=== PATIENT | female | born 1985 | race African-American/Black ===

== ENCOUNTER 2020-09-25 08:35 | Outpatient (REF) | payer MEDICAID, SELFPAY ==
--- NOTE | 2020-09-25 | US_ITS ---
EXAMINATION: US ABDOMEN COMPLETE CLINICAL INFORMATION: Right upper quadrant pain. COMPARISON: Previous CT of the abdomen and pelvis July 2019 TECHNIQUE: Real-time imaging of the abdominal viscera. FINDINGS: PANCREAS: Not well visualized due to bowel gas ABDOMINAL AORTA: The proximal and mid abdominal aorta is normal in caliber. The distal abdominal aorta is not well visualized due to bowel gas. INFERIOR VENA CAVA: Visualized portions are normal. LIVER: Liver echotexture is increased. The liver is enlarged, right lobe measuring 21 cm in length. The liver is normal in shape and contour.. No focal hepatic lesion. There is no intrahepatic biliary duct dilatation seen. GALLBLADDER: Normal. The gallbladder is physiologically distended without evidence of stones, sludge, polyps, wall thickening or pericholecystic fluid. COMMON BILE DUCT: Normal in caliber measuring 0.4 cm in diameter. RIGHT KIDNEY: Normal. No hydronephrosis. No renal calculi or focal parenchymal lesions. The kidney measures 10.5 cm in maximum dimension. LEFT KIDNEY: Normal. No hydronephrosis. No renal calculi or focal parenchymal lesions. The kidney measures 11 cm in maximum dimension. SPLEEN: Normal. The spleen measures 10 cm in maximum dimension. FREE FLUID: None. US/US abdomen complete IMPRESSION: Enlarged echogenic liver probably representing fatty infiltration. Normal-appearing gallbladder. Limited visualization of the pancreas and aorta.
== END 2020-09-25 08:36 | disposition home or self-care (01) ==
LOC: HO.US 08:35
PROVIDERS: Visit Provider Internal Medicine Geriatric Medicine
DX: R10.11 Right upper quadrant pain (principal)
CPT/HCPCS: 76700

== ENCOUNTER 2020-11-14 10:50 | Outpatient (REF) | payer MEDICAID, SELFPAY ==
[2020-11-21 20:12] LABS: HPV 16 RNA NOT DETECTED (NOT DETECTED); HPV mRNA E6/E7 rflx Detected (Not Detected)
== END 2020-11-14 10:51 | disposition home or self-care (01) ==
LOC: HO.LAB 10:50
PROVIDERS: Visit Provider Obstetrics & Gynecology
DX: D06.9 Carcinoma in situ of cervix, unspecified (principal); Z79.899 Other long term (current) drug therapy; Z30.9 Encounter for contraceptive management, unspecified
CPT/HCPCS: 87624; 87625; 88141; 88142; 88305; 99212

== ENCOUNTER 2020-11-20 16:06 | Emergency (ER) | payer MEDICAID, SELFPAY | END 2020-11-20 17:51 | disposition left against medical advice (07) | PROVIDERS: Emergency Provider Emergency Medicine | DX: R10.11 Right upper quadrant pain (principal) ==

== ENCOUNTER 2020-12-02 10:55 | Outpatient (REF) | payer MEDICAID, SELFPAY | END 2020-12-02 10:56 | disposition home or self-care (01) | LOC: HO.LAB 10:55 | PROVIDERS: Visit Provider Obstetrics & Gynecology | DX: R87.610 Atypical squamous cells of undetermined significance on cytologic smear of cervix (ASC-US) (principal); R87.810 Cervical high risk human papillomavirus (HPV) DNA test positive; R07.9 Chest pain, unspecified; Z79.899 Other long term (current) drug therapy | CPT/HCPCS: 57455; 81025; 88305; 99212 ==

== ENCOUNTER → 2020-12-12 11:32 | Outpatient (BNVA) | payer MEDICAID, SELFPAY | PROVIDERS: PCP Internal Medicine; Visit Provider Obstetrics & Gynecology ==

== ENCOUNTER 2021-02-18 09:42 | Outpatient (REF) | payer MEDICAID, SELFPAY ==
[2021-02-18 14:20] LABS: CT PCR NOT DETECTED (Not Detect.); NG PCR NOT DETECTED (Not Detect.)
[2021-02-19 09:38] LABS: BV Int Neg Control Negative (Negative); BV Int Pos Control Positive (Positive)
== END 2021-02-18 09:43 | disposition home or self-care (01) ==
LOC: HO.LAB 09:42
PROVIDERS: Visit Provider Obstetrics & Gynecology
DX: R10.2 Pelvic and perineal pain (principal)
CPT/HCPCS: 87480; 87491; 87510; 87591; 87660; 99212

== ENCOUNTER 2021-02-25 11:25 | Outpatient (REF) | payer MEDICAID, SELFPAY ==
--- NOTE | ~2021-02-25 | US_ITS ---
EXAM: Pelvic Ultrasound CLINICAL INDICATION: Pelvic and perineal pain COMPARISON: Pelvic ultrasound June 20, 2020 TECHNIQUE: The pelvis was evaluated using transabdominal and transvaginal imaging. FINDINGS: The uterus measures 10.2 x 4.5 x 6.4 cm in longitudinal by AP by transverse dimension. The endometrial stripe is not thickened and measures 0.6 cm. Several nabothian cysts are present within the cervix. Mild thickening of the cervical endometrium. The left ovary measures approximately 2.6 x 2.7 x 1.7 cm and is normal. The right ovary measures approximately 2.6 x 2.7 x 2.3 cm and is also normal. There are no abnormal adnexal masses. There is no free fluid in the pelvis. US/US pelvic complete IMPRESSION: -Normal thickness uterine endometrium. -There is mild thickening of the cervical endometrium in addition to several nabothian cysts. Clinical correlation recommended. Direct inspection may be warranted.
--- NOTE | ~2021-02-25 | US_ITS ---
EXAM: Pelvic Ultrasound CLINICAL INDICATION: Pelvic and perineal pain COMPARISON: Pelvic ultrasound June 20, 2020 TECHNIQUE: The pelvis was evaluated using transabdominal and transvaginal imaging. FINDINGS: The uterus measures 10.2 x 4.5 x 6.4 cm in longitudinal by AP by transverse dimension. The endometrial stripe is not thickened and measures 0.6 cm. Several nabothian cysts are present within the cervix. Mild thickening of the cervical endometrium. The left ovary measures approximately 2.6 x 2.7 x 1.7 cm and is normal. The right ovary measures approximately 2.6 x 2.7 x 2.3 cm and is also normal. There are no abnormal adnexal masses. There is no free fluid in the pelvis. US/US transvaginal IMPRESSION: -Normal thickness uterine endometrium. -There is mild thickening of the cervical endometrium in addition to several nabothian cysts. Clinical correlation recommended. Direct inspection may be warranted.
== END 2021-02-25 11:26 | disposition home or self-care (01) ==
LOC: HO.US 11:25
PROVIDERS: Visit Provider Obstetrics & Gynecology
DX: R10.2 Pelvic and perineal pain (principal)
CPT/HCPCS: 76830; 76856

== ENCOUNTER → 2021-03-11 10:54 | Outpatient (BNVA) | payer MEDICAID, SELFPAY | PROVIDERS: Visit Provider Obstetrics & Gynecology | CPT/HCPCS: 99212 ==

== ENCOUNTER → 2021-04-10 11:27 | Outpatient (BNVA) | payer MEDICAID, SELFPAY | PROVIDERS: Visit Provider Advanced Practice Midwife ==

== ENCOUNTER 2021-04-16 11:37 | Outpatient (REF) | payer MEDICAID, SELFPAY ==
[2021-04-17 08:58] LABS: BV Int Neg Control Negative (Negative); BV Int Pos Control Positive (Positive)
[2021-04-17 09:00] LABS: CT PCR NOT DETECTED (Not Detect.); NG PCR NOT DETECTED (Not Detect.)
== END 2021-04-16 11:38 | disposition home or self-care (01) ==
LOC: HO.LAB 11:37
PROVIDERS: Visit Provider Obstetrics & Gynecology
DX: Z11.3 Encounter for screening for infections with a predominantly sexual mode of transmission (principal); R31.29 Other microscopic hematuria; B37.3 Candidiasis of vulva and vagina; N91.2 Amenorrhea, unspecified
CPT/HCPCS: 87480; 87491; 87510; 87591; 87660; 99212

== ENCOUNTER 2021-04-30 10:28 | Outpatient (REF) | payer MEDICAID, SELFPAY | END 2021-04-30 10:29 | disposition home or self-care (01) | LOC: HO.LAB 10:28 | PROVIDERS: Visit Provider Obstetrics & Gynecology | DX: R31.29 Other microscopic hematuria (principal); N91.2 Amenorrhea, unspecified | CPT/HCPCS: 87086; 99212 ==

== ENCOUNTER 2021-05-09 14:06 | Outpatient (REF) | payer MEDICAID, SELFPAY ==
--- NOTE | ~2021-05-09 | CT_ITS ---
EXAMINATION: CT ABDOMEN AND PELVIS WITHOUT CONTRAST CLINICAL INFORMATION: Flank pain and left upper quadrant pain. Dysuria. Question renal stones. COMPARISON: Previous pelvic ultrasound February 2021, abdomen ultrasound September [address] of the abdomen and pelvis July 2019 TECHNIQUE: Multidetector volumetric images were obtained from the superior aspect of the liver through the pubic symphysis without intravenous contrast. Sagittal and coronal reformatted images were obtained on the technologist's workstation. Oral contrast: No This CT examination was performed using dose optimization techniques as appropriate, variously including the following: *Automated exposure control *Adjustment of mA and/or kV according to patient size (this includes techniques or standardized protocols for targeted exams where dose is matched to indication/reason for exam; i.e. extremities or head) *Use of iterative reconstruction technique DLP: 962 mGy-cm FINDINGS: LUNG BASES: There is a 2 mm calcified left lower lobe nodule axial image 17 series 3. This is stable. The lung bases are otherwise clear. LIVER, GALLBLADDER, AND BILIARY TREE: The liver is enlarged and low in attenuation suggestive of fatty infiltration. No focal liver lesion is seen. There is a gallstone in the gallbladder. The gallbladder is otherwise normal. There is no intra or extrahepatic biliary duct dilatation. PANCREAS: Unremarkable. SPLEEN: Unremarkable. ADRENAL GLANDS: Unremarkable. KIDNEYS AND URETERS: The kidneys are normal in size, shape, and attenuation. No hydronephrosis, hydroureter, or calculi seen. No perinephric stranding. BLADDER: Not optimally distended. GASTROINTESTINAL TRACT: The small and large bowel are unremarkable. The appendix is unremarkable. ABDOMINAL WALL: No significant hernia is appreciated. LYMPH NODES: Normal. VASCULAR: Unremarkable. PELVIC VISCERA: Unremarkable. OSSEOUS STRUCTURES: Unremarkable. CT/CT abdomen pelvis w con IMPRESSION: Enlarged fatty liver. Small gallstone. No renal stone seen.
== END 2021-05-09 14:07 | disposition home or self-care (01) ==
LOC: HO.CT 14:06
PROVIDERS: PCP Internal Medicine; Visit Provider Emergency Medicine
DX: R10.9 Unspecified abdominal pain (principal)
CPT/HCPCS: 74177

== ENCOUNTER → 2021-06-04 14:56 | Outpatient (BNVA) | payer MEDICAID, SELFPAY | PROVIDERS: Visit Provider Obstetrics & Gynecology | DX: R31.29 Other microscopic hematuria (principal) | CPT/HCPCS: 81003; 99212 ==

== ENCOUNTER 2022-02-04 10:06 | Outpatient (REF) | payer OTHER, SELFPAY ==
[2022-02-04 12:46] LABS: HCG Quantitative < 2 mIU/mL; TSH reflex Free T4 1.38 uIU/mL (0.32-4.0)
[2022-02-07 09:26] LABS: HPV mRNA E6/E7 rflx Not Detected (Not Detected)
== END 2022-02-04 10:07 | disposition home or self-care (01) ==
LOC: HO.LAB 10:06
PROVIDERS: PCP Internal Medicine; Visit Provider Obstetrics & Gynecology
DX: Z01.411 Encounter for gynecological examination (general) (routine) with abnormal findings (principal); Z11.51 Encounter for screening for human papillomavirus (HPV); N91.2 Amenorrhea, unspecified
CPT/HCPCS: 36415; 84443; 84702; 87624; 88142

== ENCOUNTER → 2022-02-18 11:17 | Outpatient (BNVA) | payer MEDICAID, SELFPAY | PROVIDERS: PCP Internal Medicine; Visit Provider Obstetrics & Gynecology | DX: N91.2 Amenorrhea, unspecified (principal) | CPT/HCPCS: 81025; 99212 ==

== ENCOUNTER 2024-06-04 00:08 | Emergency (ER) | payer MEDICAID, SELFPAY ==
[2024-06-04 00:17] VITALS: BP 112/83; PULSE 74; RESP 16; TEMP 37.1; O2SAT 97; BMI 48.8
[2024-06-04 01:12] LABS: IDNOW Serial# 58CA691E; Strep A Nucleic Acid Negative (Negative)
[2024-06-04 01:16] LABS: IDNOW Serial# 6674DD1D; Influenza A Negative (Negative); Influenza B2 Negative (Negative)
[2024-06-04 01:26] VITALS: BP 122/57; PULSE 73; RESP 16; TEMP 37.1; O2SAT 98
[2024-06-04 01:27] LABS: COVID-19 Test Negative (Negative); IDNOW Serial# 152EDE1D
[2024-06-04] MEDS: predniSONE 10 MG TABLET 50 MG PO (02:04)
[2024-06-04] MEDS: Ibuprofen 600 MG TABLET PO (02:04)
[2024-06-04] MEDS: Amoxicillin/Potassium Clav 500 MG TABLET PO (02:04)
--- NOTE | 2024-06-04 02:20 | ED_ITS ---
HPI - URI/Sore Throat General Chief Complaint: Upper Respiratory Symptoms Stated Complaint: diff breathing, flu like? Time Seen by Provider: 06/04/24 01:36 Source: patient Mode of arrival: ambulatory Limitations: no limitations History of Present Illness ED Provider: Dr. Michelle Herron HPI Narrative: Patient comes to the emergency room complaining of more frequent asthma exacerbations, cough, sore throat. Patient is here with her children, 1 of them tested positive for strep. Patient states she has been having symptoms for about 3 days. Patient complaining of subjective fever and chills, generalized malaise. No nausea vomiting or diarrhea. No shortness of breath Related Data Previous Rx's ?Medication ?Instructions ?Recorded progesterone micronized 200 mg 200 mg PO BEDTIME 5 days #5 caps 02/18/22 capsule (Prometrium) amoxicillin 500 mg-potassium 1 tab PO TID #30 tabs 06/04/24 clavulanate 125 mg tablet (Augmentin) prednisone 50 mg tablet 50 mg PO DAILY #4 tabs 06/04/24 Allergies Allergy/AdvReac Type Severity Reaction Status Date / Time No Known Allergies [NKA] Allergy Mild NOT Verified 06/04/24 00:18 APPLICABLE Review of Systems Review of Systems: Constitutional : No Weight loss, No Fever, No Chills, No Night Sweats, No Fatigue, No Malaise ENT/Mouth : No Hearing loss, No Ear Pain, No Nasal Congestion, No Sinus Pain, No Hoarseness, complaining of sore throat, No Rhinorrhea, No Swallowing Difficulty Eyes: No Eye Pain, No Swelling, No Redness, No Foreign Body, No Discharge, No Vision Changes Cardiovascular : No Chest Pain, No SOB, No Dyspnea on Exertion, No Orthopnea, No Edema, No Palpitations Respiratory : Complaining of dry, No Sputum, complaining of more frequent asthma exacerbations than usual for the last 3 days, No Smoke Exposure, No Dyspnea Gastrointestinal : No Nausea, No Vomiting, No Diarrhea, No Constipation, No abdominal Pain, No Hematochezia, No Melena Genitourinary : no irregular bleeding, No Dysuria, No Urinary Frequency, No Hematuria, No Urinary Incontinence, No Urgency, No Flank Pain, No Urinary Flow Changes, No Hesitancy Musculoskeletal : No joint pain, No Myalgias, No Joint Swelling Skin : No Skin Lesions, No rash Neuro : No Weakness, No Numbness, No Paresthesias, No Loss of Consciousness, No Dizziness, No Headache Psych : No Anxiety/Panic, No Depression, No SI/HI/AH/VH, No Social Issues, Heme/Lymph: No Bruising, No Bleeding,No Lymphadenopathy Endocrine : No Polyuria, No Polydipsia, No Temperature Intolerance [facility] Past Medical History Medical History Hx LEEP (loop electrosurgical excision procedure), cervix, Anxiety Depression Asthma Social History Social History (System 12/15/22 @ 14:55 by Ghislaine Ray) Alcohol intake: never Advance Directives: No Advance Directives Information Provided: No Do you have a plan to hurt others: No Plan Sexual orientation: Straight/Heterosexual Gender identity: Female Physical Exam Vital Signs: Vital Signs: Last Vital Signs Temp 98.7 F 06/04/24 01:26 Pulse 73 06/04/24 01:26 Resp 16 06/04/24 01:26 BP 122/57 L 06/04/24 01:26 Pulse Ox 98 06/04/24 01:26 O2 Del Method Room Air 06/04/24 01:26 BMI result Body Mass Index 48.8 Const: Other: Appearance: Alert. Oriented X3. No acute distress. Eyes: Pupils equal, round and reactive to light. ENT: Cerebral pharynx, no exudates, no abscesses Neck: Normal inspection. Neck supple. No lymph nodes noted. No crepitus CVS: Normal heart rate and rhythm. Pulses normal. Normal S1 and S2 Respiratory: No respiratory distress. Breath sounds normal. No Wheezing. No rales Abdomen: Soft and nontender. No rigidity. No distention. Skin: Skin warm and dry. Normal skin color. Normal skin turgor. Extremities: No lower extremity edema. No Lacerations. No Rash Neuro: Oriented X 3. No motor deficit. No sensory deficit. Moving all extremities. No slurred speech. CN 2 through 12 grossly intact Psych: calm, cooperative, normal affect Medications Administered Discontinued Medications Generic Name Dose Route Start Last Admin Trade Name Freq PRN Reason Stop Dose Admin Amoxicillin/Clavulanate Potassium 500 mg 06/04/24 01:55 06/04/24 02:04 Amoxicillin/Potassium Clav 500 Mg Tablet PO 06/04/24 01:56 500 mg ONCE ONE Administration Ibuprofen 600 mg 06/04/24 01:56 06/04/24 02:04 Ibuprofen 600 Mg Tablet PO 06/04/24 01:57 600 mg ONCE ONE Administration Prednisone 50 mg 06/04/24 01:55 06/04/24 02:04 Prednisone 10 Mg Tablet PO 06/04/24 01:56 50 mg ONCE ONE Administration Medical Decision Making Medical Decision Making [facility] Narrative: -my interpretation of labs: Patient tested negative for influenza COVID and s trep. However, patient's oropharynx is significantly erythematous and also her son tested positive for strep, we will go ahead and treat the patient for strep as well. -patient complaining of more frequent asthma exacerbations. At this time, patient does not have any wheezing. However, we will give her a dose of prednisone and a small prescription for the next few months. Differential Diagnosis Differential Diagnoses: The differential diagnosis associated with the presentation includes (Asthma exacerbation, viral illness, strep, COVID, influenza) Lab Data [facility] Lab Attestation statement: I reviewed the patient's lab results. Labs: Lab Results 06/04/24 Range/Units 00:43 COVID-19 (JEANNINE) Negative (Negative) COVID-19 Clin Com See Note Influenza Type A (JOVANNY) Negative (Negative) Influenza Type B (JOVANNY) Negative (Negative) Influenza A & B Note See Note S. pyogenes GrpA JOVANNY Negative (Negative) Discharge Plan Discharge Clinical Impression: Viral URI, Pharyngitis Patient Disposition: Home, Self-Care Instructions: Pharyngitis (ED), Influenza (ED) Additional Instructions: Please follow-up with your primary care physician tomorrow. If you have any worsening or new symptoms, please return to the emergency room or call 911 Prescriptions: New amoxicillin-pot clavulanate [Augmentin] 500-125 mg tablet 1 tab PO TID Qty: 30 0RF prednisone 50 mg tablet 50 mg PO DAILY Qty: 4 0RF No Action progesterone micronized [Prometrium] 200 mg capsule 200 mg PO BEDTIME 5 Days Qty: 5 0RF Print Language: Portuguese
[2024-06-04 02:34] VITALS: BP 122/57; PULSE 73; RESP 16; TEMP 37.1; O2SAT 98
== END 2024-06-04 02:37 | disposition home or self-care (01) ==
PROVIDERS: Emergency Provider Emergency Medicine
DX: J02.9 Acute pharyngitis, unspecified (principal); J06.9 Acute upper respiratory infection, unspecified; R06.02 Shortness of breath; R05.9 Cough, unspecified; Z11.52 Encounter for screening for COVID-19; Z79.899 Other long term (current) drug therapy
CPT/HCPCS: 87502; 87635; 87651; 99283

== ENCOUNTER 2024-06-06 22:54 | Emergency (ER) | payer MEDICAID, SELFPAY ==
[2024-06-06 22:56] VITALS: BP 134/76; PULSE 71; RESP 18; TEMP 36.8; O2SAT 97; BMI 48.0
== END 2024-06-07 02:13 | disposition left against medical advice (07) ==
PROVIDERS: Emergency Provider Emergency Medicine
DX: R05.9 Cough, unspecified (principal); R06.02 Shortness of breath; Z53.21 Procedure and treatment not carried out due to patient leaving prior to being seen by health care provider
CPT/HCPCS: 99281

== ENCOUNTER 2024-08-01 10:39 | Outpatient (REF) | payer MEDICAID, SELFPAY ==
[2024-08-01 13:31] LABS: Hematocrit 44.4 % (37.0-47.0); Hemoglobin 13.9 g/dl (12.0-16.0); Mean Corpuscular HGB Conc 31.3 g/dl (31.0-35.0); Mean Corpuscular Hemoglobin 26.1 pg (27.0-33.0); Mean Corpuscular Volume 83.5 fL (80.0-98.0); Mean Platelet Volume 11.6 fL (9.4-12.3); Platelet Count 383 X10*3/uL (160-400); Red Blood Count 5.32 X10*6/uL (4.20-5.50); White Blood Count 13.6 X10*3/uL (4.8-10.8)
[2024-08-01 14:46] LABS: HCG Quantitative < 2 mIU/mL; TSH reflex Free T4 1.07 uIU/mL (0.32-4.0)
[2024-08-02 08:47] LABS: Prolactin 5.5 ng/mL
== END 2024-08-01 10:40 | disposition home or self-care (01) ==
LOC: HO.LAB 10:39
PROVIDERS: PCP Physician Assistant; Visit Provider Obstetrics & Gynecology
DX: Z01.419 Encounter for gynecological examination (general) (routine) without abnormal findings (principal); N93.9 Abnormal uterine and vaginal bleeding, unspecified
CPT/HCPCS: 36415; 84146; 84443; 84702; 85027; 99395

== ENCOUNTER 2024-08-01 10:39 | Outpatient (AMB) | payer MEDICAID, SELFPAY ==
[2024-08-01 11:43] VITALS: BP 128/80; BMI 44.9
--- NOTE | 2024-08-01 11:43 | MHC.OFFVIS ---
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 Complaining of irregular menstrual cycles associated with passage of blood clots and pelvic cramping Last Pap/HPV was negative in 02/10 [facility] Medical History Hx LEEP (loop electrosurgical excision procedure), cervix, Anxiety Depression Asthma Social History Alcohol intake: never Sexual orientation: Straight/Heterosexual Gender identity: Female Female Reproductive History Menstrual Age of Menarche: 11 Duration of menses: 6-7 days Date of last menstrual period: 06/14/24 control method: none Total pregnancies: 10 Full term: 7 Number of Living Children: 7 Ab spontaneous: 3 Review of Systems Const All systems reviewed & are unremarkable except as noted in HPI and below Card Reports as per HPI Resp Reports as per HPI GI Reports as per HPI and Reports no additional complaints Reports as per HPI Physical Exam Vital Signs: Last Vital Signs BP 128/80 08/01/24 11:43 BMI result Body Mass Index 44.9 Const General: cooperative, healthy appearing and comfortable Chest Chest palpation & inspection: normal inspection of the chest and normal palpation of entire chest wall Breast/axilla inspection: normal inspection of the breasts and normal inspection of the axillae Breast/axilla palpation: normal palpation of the breasts, normal palpation of the axillae and no axillary lymphadenopathy Resp Effort & Inspection: normal respiratory effort Auscultation: clear to auscultation bilaterally Percussion: percussion normal Cardio Palpation: normal PMI Rate: regular rate Rhythm: regular rhythm Heart sounds: no murmurs and no rubs Peripheral pulses: Peripheral pulses 2+ throughout GI Inspection: Yes normal to inspection Palpation (GI): Soft to palpation, nontender, no guarding, not rigid and No hepatosplenomegaly present Percussion: Yes normal to percussion Auscultation: normal bowel sounds Rectal Exam - Female: deferred General: Yes bladder normal to palpation External Female Exam: No lesion Speculum Exam - Vagina: normal appearance of the vagina, normal palpation, normal vaginal discharge and not erythematous Speculum Exam - Cervix: normal appearance of the cervix and normal palpation Bimanual exam- vagina & uterus: normal bimanual exam, normal palpation, uterine size normal, bladder normal to palpation, consistency normal and normal palpation Bimanual Exam- Adnexa, other: normal adnexae, no masses and no tenderness Assessment & Plan Assessment & Plan (1) Well woman exam: Comment: History of LUISITO 2-3 status post LEEP in 07/11 was positive margins followed by [facility] HPV negative, colpo , biopsy, ECC negative in 11/10 Co testing negative in 02/10 Code(s): Z01.419 - Encounter for gynecological examination (general) (routine) without abnormal findings Category: Medical Plan: Cotesting done. Counseled the patient about the recommended dietary allowance of 1000 mg of Calcium & 600 IU of vitamin D. The patient was instructed to perform monthly self-breast exams and to schedule an annual exam in a year; All questions answered and the patient verbalized understanding. Instructed the patient to schedule annual exam in a year (2) Abnormal uterine bleeding (AUB): Code(s): N93.9 - Abnormal uterine and vaginal bleeding, unspecified Category: Medical Plan: Co testing done, GC and chlamydia taken CBC, TSH, prolactin, HCG, and pelvic ultrasound ordered. Discussed with the patient the different causes of abnormal bleeding including thyroid disorders, uterine and ovarian pathology, endometrial hyperplasia, carcinoma and other potential causes. Discussed with the patient the work up including CBC (to r/o anemia), TSH, prolactin, pelvic Ultrasound, endometrial biopsy to r/o endometrial pathology. All questions answered and the patient verbalized understanding. Instructed the patient to schedule an appointment for an endometrial biopsy in 2 weeks. Orders: Orders TSH reflex Free T4 Today N93.9 - Abnormal uterine and vaginal bleeding, unspecified Prolactin Today N93.9 - Abnormal uterine and vaginal bleeding, unspecified HCG Quantitative Today N93.9 - Abnormal uterine and vaginal bleeding, unspecified Complete Blood Count no Diff Today N93.9 - Abnormal uterine and vaginal bleeding, unspecified US pelvic and transvaginal Today N93.9 - Abnormal uterine and vaginal bleeding, unspecified Coding Level of Care Code Est Pt Prev Care 18-39y(34043) Diagnoses Well woman exam Z01.419 Abnormal uterine bleeding (AUB) N93.9
== END 2024-08-01 12:03 | disposition home or self-care (01) ==
PROVIDERS: Visit Provider Obstetrics & Gynecology
DX: Z01.419 Encounter for gynecological examination (general) (routine) without abnormal findings (principal); N93.9 Abnormal uterine and vaginal bleeding, unspecified
CPT/HCPCS: 99395

== ENCOUNTER 2024-08-01 12:00 | Outpatient (REF) | payer MEDICAID, SELFPAY ==
[2024-08-01 16:51] LABS: CT PCR NOT DETECTED (Not Detect.); NG PCR NOT DETECTED (Not Detect.)
[2024-08-03 10:54] LABS: HPV mRNA E6/E7 Not Detected (Not Detected)
== END 2024-08-01 12:01 | disposition home or self-care (01) ==
LOC: HO.LNP 12:00
PROVIDERS: Visit Provider Obstetrics & Gynecology
DX: N93.9 Abnormal uterine and vaginal bleeding, unspecified (principal); Z01.419 Encounter for gynecological examination (general) (routine) without abnormal findings
CPT/HCPCS: 87491; 87591; 87624; 88175

== ENCOUNTER 2024-08-04 10:51 | Outpatient (REF) | payer MEDICAID, SELFPAY ==
--- NOTE | ~2024-08-04 | US_ITS ---
EXAMINATION: US PELVIS, TRANSABDOMINAL AND TRANSVAGINAL CLINICAL INFORMATION: Abnormal vaginal bleeding. COMPARISON: None available. TECHNIQUE: Ultrasound of the pelvis is performed using both transabdominal and transvaginal transducers along with Doppler. Transvaginal imaging is performed due to inadequate visualization transabdominally. FINDINGS: UTERUS: The uterus is anteverted and measures 9.5 x 5.2 x 5.7 cm. The double wall endometrial thickness is 13 mm. The uterus is smooth in contour and has normal myometrial echogenicity. No visible fibroid. Nabothian cysts are present in the cervix. ADNEXA: Both ovaries are visualized. There is normal color flow to the adnexa. There is no ovarian torsion. There is no pelvic ascites or fluid collection. Right ovary measures 0.3 x 2.3 x 2.1 cm for a volume of 84 mL and appears normal. Left ovary measures 2.3 x 1.6 x 1.4 cm for a volume of 2.7 mL and appears normal. US/US pelvic and transvaginal IMPRESSION: Negative exam. Electronically signed by: Flex Hunter MD 08/09/2024 03:51 PM EDT
== END 2024-08-04 10:52 | disposition home or self-care (01) ==
LOC: HO.US 10:51
PROVIDERS: PCP Physician Assistant; Visit Provider Obstetrics & Gynecology
DX: N93.9 Abnormal uterine and vaginal bleeding, unspecified (principal)
CPT/HCPCS: 76830; 76856

== ENCOUNTER 2024-10-04 11:22 | Outpatient (AMB) | payer MEDICAID, SELFPAY ==
--- NOTE | 2024-10-04 11:24 | A.OFFVIS_ITS ---
Vital Signs 10/04/24 11:35 Height 5 ft Weight 229 lb 4.492 oz BMI 44.8 BP 126/70 Intake Visit Reasons: US follow up/EMB Intake Note: Heavy menstrual cycles, not consistent. Left sided ovarian pain, says feels like someone is stabbing her. 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 ) Last menstrual period: 09/28/24 HPI Comments Details: Presenting for EMB [facility] Medical History Hx LEEP (loop electrosurgical excision procedure), cervix, Anxiety Depression Asthma Social History Alcohol intake: never Sexual orientation: Straight/Heterosexual Gender identity: Female Female Reproductive History Menstrual Age of Menarche: 11 Duration of menses: >10 days Date of last menstrual period: 09/28/24 Review of Systems Const All systems reviewed & are unremarkable except as noted in HPI and below Reports as per HPI and Reports no additional complaints GI Reports no additional complaints Reports no additional complaints Physical Exam Vital Signs: Last Vital Signs BP 126/70 10/04/24 11:35 BMI result Body Mass Index 44.8 Office Procedures Endometrial Biopsy Details: The patient was counseled regarding the indication and benefits of endometrial sampling to rule out endometrial pathology including not limited to endometrial hyperplasia or endometrial cancer and others; The alternatives (Either do nothing vs. hysteroscopy D&C) & the risks were discussed with the patient including but not limited: pain, uterine perforation, bleeding, infection, possible injury to bladder, bowel, ureter, possible need for blood transfusion with all its possible risks. The patient verbalized understanding all questions answered and signed consent. Urine test done in the office was negative The patient was placed into the dorsal lithotomy position; a speculum was inserted in the vagina. Using aseptic technique for the procedure, the cervix was cleansed with Betadine. The anterior lip of the cervix was grasped with a single tooth tenaculum. The uterus was sounded to 7 cm with a 4 mm Pipelle was used. Tissues samples were obtained and placed in formalin, in a patient labeled container and sent to the pathology department. At the end of the procedure, there was minimal bleeding noted The patient tolerated the procedure well and was discharged in good condition with the following instructions: Nothing in the vagina until the bleeding stops. No sex until the bleeding stops, to call if any of the following occurs: fever (>100.4), flu-like symptoms, abdominal pain, heavy bleeding, four smelling vaginal discharge. The patient was instructed to schedule a Follow up appointment in 2 weeks to discuss pathology results of the biopsy and treatment options. This note was generated with a voice recognition program. Some errors may have been overlooked during the review of this note. Sometimes these errors may affect the content or meaning of a given sentence. [id number] Biopsy Results AMB Test Urine AMB Test Urine Negative Last Edit by Gayathri Wilkerson CMA on 11:49 Results Reviewed Results Reviewed: Laboratory Last Values [facility]st Clinic Negative 10/04/24 11:48 Assessment & Plan Assessment & Plan (1) Abnormal uterine bleeding (AUB): Code(s): N93.9 - Abnormal uterine and vaginal bleeding, unspecified Category: Medical Plan: Endometrial biopsy done, see procedure Orders: Orders AMB HCG Urine Test Today Z32.02 - Encounter for test, result negative AMB Endometrial Biopsy Today N93.9 - Abnormal uterine and vaginal bleeding, unspecified Coding Level of Care Code Procedure Only Diagnoses Abnormal uterine bleeding (AUB) N93.9 CPT Codes Endometrial Biopsy - CPT: 44373-Hzowsoosvan Biopsy ([id number])
[2024-10-04 11:35] VITALS: BP 126/70; BMI 44.8
== END 2024-10-04 12:03 | disposition home or self-care (01) ==
PROVIDERS: Visit Provider Obstetrics & Gynecology
DX: N93.9 Abnormal uterine and vaginal bleeding, unspecified (principal); Z32.02 Encounter for pregnancy test, result negative
CPT/HCPCS: 58100

== ENCOUNTER 2024-10-04 11:22 | Outpatient (REF) | payer MEDICAID, SELFPAY | END 2024-10-04 11:23 | disposition home or self-care (01) | LOC: HO.LNP 11:22 | PROVIDERS: Visit Provider Obstetrics & Gynecology | DX: N93.9 Abnormal uterine and vaginal bleeding, unspecified (principal) | CPT/HCPCS: 58100; 81025; 88305 ==

== ENCOUNTER 2024-11-01 10:30 | Outpatient (REF) | payer MEDICAID, SELFPAY ==
[2024-11-01 14:02] LABS: HCG Quantitative < 2 mIU/mL
[2024-11-02 03:19] LABS: CT PCR NOT DETECTED (Not Detect.); NG PCR NOT DETECTED (Not Detect.)
[2024-11-02 08:27] LABS: HBsAGNum1 0.44 S/CO (0.00-0.99); HIV AB/AG Nonreactive (Nonreactive); HIV Num 1 0.06 S/CO (0.00-0.99); Hepatitis B Surface Antigen Negative (Negative); ~Hepatitis C Antibody Nonreactive (Nonreactive)
[2024-11-02 08:28] LABS: Syphilis Screen Nonreactive (Nonreactive)
== END 2024-11-01 10:31 | disposition home or self-care (01) ==
LOC: HO.LAB 10:30
PROVIDERS: Visit Provider Advanced Practice Midwife
DX: D06.9 Carcinoma in situ of cervix, unspecified (principal); R87.810 Cervical high risk human papillomavirus (HPV) DNA test positive; R10.2 Pelvic and perineal pain; N73.0 Acute parametritis and pelvic cellulitis; N93.9 Abnormal uterine and vaginal bleeding, unspecified; Z20.2 Contact with and (suspected) exposure to infections with a predominantly sexual mode of transmission
CPT/HCPCS: 84702; 86780; 86803; 87340; 87389; 87491; 87591; 99212; 99459; J0696

== ENCOUNTER 2024-11-01 10:30 | Outpatient (AMB) | payer MEDICAID, SELFPAY ==
[2024-11-01 10:35] VITALS: BP 128/78; BMI 44.7
--- NOTE | 2024-11-01 10:35 | A.OFFVIS_ITS ---
Vital Signs 11/01/24 10:35 Height 5 ft Weight 229 lb BMI 44.7 BP 128/78 Intake Visit Reasons: std test [employer]r Services: [employer] Present Information Interpreted: clinical only Parliamentary Counsel: Parliamentary Counsel Present Allergies No Known Allergies [NKA] Allergy (Mild, Verified 11/01/24 10:36) NOT APPLICABLE Medication List - Last Reconciled 11/01/24 by Maura Valadez CNM empagliflozin (Jardiance) 25 mg PO DAILY insulin glargine (Lantus U-100 Insulin) 22 units subcut DAILY progesterone micronized (Prometrium) 200 mg PO BEDTIME 5 days rosuvastatin 20 mg PO DAILY Is last menstrual period known: Yes Last menstrual period: 10/20/24 HPI HPI std test: Details: Patient is here because she wants to get checked for STDs because her with whom she is sexually active slept with somebody else.. She is very upset and scared and wants to take care of herself additionally she wants a test because she had an inconclusive test at home even though her periods is not late. She recently, last month had an endometrial biopsy with Dr. Mendoza of the hospital but has not seen him for the results yet. She has a history of a LEEP as well also she said that she had endometriosis diagnosed at [facility] in the past though she does not recall having had a laparoscopy. She has been under lots of stress because of the marital challenges. She thinks it is possible she may have missed an appointment. She wants checked fully for STI. [facility] Medical History Hx LEEP (loop electrosurgical excision procedure), cervix, Anxiety Depression Asthma Social History Alcohol intake: never Sexual orientation: Straight/Heterosexual Gender identity: Female Female Reproductive History Menstrual Age of Menarche: 11 Duration of menses: <3 days Date of last menstrual period: 10/20/24 control method: none Total pregnancies: 7 Full term: 7 Date of last pap smear: 02/04/22 (negative) History of abnormal pap smear: Yes (2020 abn.) Physical Exam Vital Signs: Last Vital Signs BP 128/78 11/01/24 10:35 BMI result Body Mass Index 44.7 Other: Normal external exam. Vagina is pink and moist there is a yellowish whitish liquidy bubbly discharge patient was tender with placement of the speculum and also with bimanual exam and there was some cervical motion tenderness. Uterus difficult to palpate but she was tender overall. Results Reviewed Results Reviewed: Name: Abigail Stanley Age/Sex: 39/F Attending: Lizandro Mendoza MD : 1985 Submitted by: Lizandro Mendoza MD Copies to: MR #: [id number] Status: DEP REF Collected: 10/04/24 Location: [facility] Received: 10/05/24 Diagnosis Endometrium, biopsy: Fragments of inactive endometrium with stromal and glandular breakdown; negative for atypia, hyperplasia or malignancy. Clinical History AUB Microscopic Description Microscopic sections reviewed. Material Received EMB Gross Description Received in formalin labeled ?EMB? is a 3.0 x 2.2 x 0.5 cm aggregate of multiple fragments of congested and hemorrhagic red-maroon tissue and blood, submitted in toto in cassettes A1 and A2. CEDS NOTE: Unless otherwise stated, all tissue is formalin-fixed and paraffin- embedded. Some or all of the immunohistochemical tests reported herein may have been developed and their performance characteristics determined by [facility]. They have not been cleared or approved by the U.S. Food and Drug Administration (FDA). However, the FDA has determined that such clearance or approval is not necessary. This laboratory is certified under the Clinical Laboratory Improvement Amendments of 1988 (CLIA) as qualified to perform high complexity clinical laboratory testing. Electronically Signed By: Lamar Mauricio MD 10/06/24 1426 Patient: Abigail Stanley Age/Sex: 39/F MR#: [id number] Page 1 of 1 Assessment & Plan Assessment & Plan (1) LUISITO III (cervical intraepithelial neoplasia grade III) with severe dysplasia: Comment: Status post LEEP cone with positive margins, 4 months Pap was ASCUS HPV positive, ECC LUISITO 1 colpo biopsy negative Code(s): D06.9 - Carcinoma in situ of cervix, unspecified Category: Medical (2) ASCUS with positive high risk HPV: Comment: On a 4 months Pap smear, ECC = LUISITO I following LEEP cone for LUISITO 2-3 with positive margins 4 months ago Category: Medical (3) Pelvic pain: Code(s): R10.2 - Pelvic and perineal pain Category: Medical (4) Encounter for screening examination for sexually transmitted disease: Code(s): Z11.3 - Encounter for screening for infections with a predominantly sexual mode of transmission Category: Medical (5) PID (acute pelvic inflammatory disease): Code(s): N73.0 - Acute parametritis and pelvic cellulitis Category: Medical (6) Abnormal uterine bleeding (AUB): Code(s): N93.9 - Abnormal uterine and vaginal bleeding, unspecified Category: Medical Plan Patient was tender during the exam and placement of the speculum and even with touch of Q-tips on the basis of this I am diagnosing her with PID and we will treat her accordingly with metronidazole doxy Cyclen and ceftriaxone message sent to the nurses for the patient to be seen today if possible for injection of ceftriaxone the larger dose secondary to her BMI. I reviewed the rationale for treating her aggressively to cover all of the bases is while we do any workup for any STI she wants full blood work which I have ordered as well as the quant HCG at her request for her own peace of mind. We will see her in 7-10 days discussed the challenges of taking these medications which can taste bad and the needs to be a 14 day course. She agrees with this plan and agrees with the plan to be covered with the medication assertively. She will need follow-up with Dr. Mendoza to review her endometrial biopsy in future as well.. She recalls having taken these medications before. She is diabetic and she has thorough with all of her meds including her insulin.. Orders: Orders AMB Ceftriaxone Injection Today D06.9 - Carcinoma in situ of cervix, unspecified, N73.0 - Acute parametritis and pelvic cellulitis, R10.2 - Pelvic and perineal pain, Z11.3 - Encounter for screening for infections with a predominantly sexual mode of transmission HCG Quantitative Today D06.9 - Carcinoma in situ of cervix, unspecified, N73.0 - Acute parametritis and pelvic cellulitis, N93.9 - Abnormal uterine and vaginal bleeding, unspecified, R10.2 - Pelvic and perineal pain Hepatitis C Antibody Today D06.9 - Carcinoma in situ of cervix, unspecified, N73.0 - Acute parametritis and pelvic cellulitis, N93.9 - Abnormal uterine and vaginal bleeding, unspecified, R10.2 - Pelvic and perineal pain HIV Ab/Ag Today D06.9 - Carcinoma in situ of cervix, unspecified, N73.0 - Acute parametritis and pelvic cellulitis, N93.9 - Abnormal uterine and vaginal bleeding, unspecified, R10.2 - Pelvic and perineal pain Syphilis Screen Today D06.9 - Carcinoma in situ of cervix, unspecified, N73.0 - Acute parametritis and pelvic cellulitis, N93.9 - Abnormal uterine and vaginal bleeding, unspecified, R10.2 - Pelvic and perineal pain CT NG by PCR Today Z20.2 - Contact with and (suspected) exposure to infections with a predominantly sexual mode of transmission Bacterial Vaginosis Panel Today N89.8 - Other specified noninflammatory disorders of vagina Hepatitis B Surface Antigen Today D06.9 - Carcinoma in situ of cervix, unspecified, N73.0 - Acute parametritis and pelvic cellulitis, N93.9 - Abnormal uterine and vaginal bleeding, unspecified, R10.2 - Pelvic and perineal pain Medications: New ceftriaxone 500 mg IM ONCE 1 ea 0RF D06.9 - Carcinoma in situ of cervix, unspecified, N73.0 - Acute parametritis and pelvic cellulitis, R10.2 - Pelvic and perineal pain, Z11.3 - Encounter for screening for infections with a predominantly sexual mode of transmission metronidazole 500 mg PO Q12H 28 tabs 0RF doxycycline hyclate 100 mg PO BID 28 tabs 0RF Coding Level of Care Code Est Pt Level 3 (65440) Diagnoses LUISITO III (cervical intraepithelial neoplasia grade III) with severe dysplasia D06.9 ASCUS with positive high risk HPV Pelvic pain R10.2 Encounter for screening examination for sexually transmitted disease Z11.3 PID (acute pelvic inflammatory disease) N73.0 Abnormal uterine bleeding (AUB) N93.9
== END 2024-11-01 11:42 | disposition home or self-care (01) ==
PROVIDERS: Visit Provider Advanced Practice Midwife
DX: D06.9 Carcinoma in situ of cervix, unspecified (principal); R10.2 Pelvic and perineal pain; Z11.3 Encounter for screening for infections with a predominantly sexual mode of transmission; N73.0 Acute parametritis and pelvic cellulitis; N93.9 Abnormal uterine and vaginal bleeding, unspecified
CPT/HCPCS: 99213

== ENCOUNTER 2024-11-01 12:09 | Outpatient (REF) | payer MEDICAID, SELFPAY ==
[2024-11-02 09:16] LABS: Bacterial Vaginosis PCR NEGATIVE (Negative); Candida Group PCR NOT DETECTED (Not Detect); Candida glab krusei PCR DETECTED (Not Detect); Trichomonas vaginalis PCR NOT DETECTED (Not Detect)
== END 2024-11-01 12:10 | disposition home or self-care (01) ==
LOC: HO.HHCL 12:09
PROVIDERS: Visit Provider Advanced Practice Midwife
DX: N89.8 Other specified noninflammatory disorders of vagina (principal)
CPT/HCPCS: 0352U

== ENCOUNTER 2024-12-04 08:13 | Outpatient (AMB) | payer MEDICAID, SELFPAY ==
--- NOTE | 2024-12-04 08:13 | MHC.OFFVIS ---
Intake Visit Reasons: EMB results Allergies No Known Allergies [NKA] Allergy (Mild, Verified 11/01/24 10:36) NOT APPLICABLE HPI Comments Details: The patient scheduled tele health visit for follow-up to discuss the results of her abnormal uterine bleeding workup and options of treatment. The following workup was done: H&H= 13.9/44.4 TSH, prolactin, hCG, GC and chlamydia were negative. Endometrial biopsy pathology showed the following: Endometrium, biopsy: Fragments of inactive endometrium with stromal and glandular breakdown; negative for atypia, hyperplasia or malignancy Co testing was done in 02/10 was negative. Pelvic ultrasound showed the following: UTERUS: The uterus is anteverted and measures 9.5 x 5.2 x 5.7 cm. The double wall endometrial thickness is 13 mm. The uterus is smooth in contour and has normal myometrial echogenicity. No visible fibroid. Nabothian cysts are present in the cervix. ADNEXA: Both ovaries are visualized. There is normal color flow to the adnexa. There is no ovarian torsion. There is no pelvic ascites or fluid collection. Right ovary measures 0.3 x 2.3 x 2.1 cm for a volume of 84 mL and appears normal. Left ovary measures 2.3 x 1.6 x 1.4 cm for a volume of 2.7 mL and appears normal. [facility] Medical History Hx LEEP (loop electrosurgical excision procedure), cervix, Anxiety Depression Asthma Social History Alcohol intake: never Sexual orientation: Straight/Heterosexual Gender identity: Female Female Reproductive History Menstrual Age of Menarche: 11 Review of Systems Const All systems reviewed & are unremarkable except as noted in HPI and below Reports as per HPI and Reports no additional complaints GI Reports no additional complaints Reports no additional complaints Telehealth Telehealth [facility]health [facility]: [facility] Location of provider rendering services: practice address Location of patient: address on file Patient Identification confirmed using: Name, : Yes Telehealth method: video Patient verbally consented to treatment: Yes Patient verbally consented to billing insurance company: Yes Patient informed of any privacy concerns related to visit: Yes Assessment & Plan Assessment & Plan (1) Abnormal uterine bleeding (AUB): Code(s): N93.9 - Abnormal uterine and vaginal bleeding, unspecified Category: Medical Plan: Discussed with the patient the results of the work up done and options of treatment including Lysteda, BCP's, Mirena IUD. All pros, cons, risks and benefits if each option was discussed with the patient and the patient decided to think about it and get back to us. All questions answered the patient verbalized understanding. I spent a total of 20 minutes reviewing the chart, talking to the patient via video and documenting in the medical record. Coding Level of Care Code Tele Est Pt Level 3 (39372) Diagnoses Abnormal uterine bleeding (AUB) N93.9
== END 2024-12-04 12:07 | disposition home or self-care (01) ==
PROVIDERS: Visit Provider Obstetrics & Gynecology
DX: N93.9 Abnormal uterine and vaginal bleeding, unspecified (principal)
CPT/HCPCS: 99213

== ENCOUNTER 2025-02-05 16:19 | Outpatient (REF) | payer MEDICAID, SELFPAY ==
[2025-02-05 17:35] LABS: HCG Quantitative < 2 mIU/mL
== END 2025-02-05 16:20 | disposition home or self-care (01) ==
LOC: HO.LAB 16:19
PROVIDERS: Visit Provider Advanced Practice Midwife
DX: N92.6 Irregular menstruation, unspecified (principal)
CPT/HCPCS: 36415; 84702

== ENCOUNTER 2025-06-21 14:42 | Outpatient (REF) | payer MEDICAID, SELFPAY ==
[2025-06-22 05:01] LABS: CT PCR NOT DETECTED (Not Detect.); NG PCR NOT DETECTED (Not Detect.)
== END 2025-06-21 14:43 | disposition home or self-care (01) ==
LOC: HO.LNP 14:42
PROVIDERS: PCP Physician Assistant; Visit Provider Obstetrics & Gynecology
DX: R10.2 Pelvic and perineal pain (principal); R31.29 Other microscopic hematuria; R10.32 Left lower quadrant pain; Z32.02 Encounter for pregnancy test, result negative
CPT/HCPCS: 81002; 87086; 87491; 87591; 99212

== ENCOUNTER 2025-06-21 14:42 | Outpatient (AMB) | payer MEDICAID, SELFPAY ==
--- OUTSIDE RECORDS SUMMARY | 2025-06-21 14:47 | XMS_ITS | Clinical Summary ---
Author Organization [facility] Address [address] [place] [address] Phone Care Team Providers Care Division Order Analyst Name Role Phone Physician, Pcp Unknown Primary Care Provider Nicole vailable Allergies Active Allergy Reactions Criticality Noted Date Comments Metformin 02/26/2025 Social History Tobacco Use Types Packs/Day Years Used Date Smoking Tobacco: Never Assessed Comments Unknown Sex and Gender Information Value Date Recorded Sex Assigned at Not on file Legal Sex Female 4:51 PM EST Gender Identity Not on file Sexual Orientation Not on file Last Filed Vital Signs Vital Sign Reading Time Taken Comments Blood Pressure 155/73 02/26/2025 10:36 PM EDT Pulse 54 02/26/2025 10:36 PM EDT Temperature 36.5 C (97.7 F) 02/26/2025 10:36 PM EDT Respiratory Rate 20 02/26/2025 10:36 PM EDT Oxygen Saturation 98% 02/26/2025 10:36 PM EDT Inhaled Oxygen Concentration - - Weight 105 kg (231 lb) 02/26/2025 10:36 PM EDT Height 152.4 cm (5') 02/26/2025 10:36 PM EDT Body Mass Index 45.11 02/26/2025 10:36 PM EDT Plan of Treatment Health Maintenance Due Date Last Done Comments Hepatitis B Vaccines (1 of 3 - 19+ 3-dose series) 2006 Pneumococcal Vaccine: Pediatrics (0 to 5 Years) and At-Risk Patients (6 to 49 Years) (1 of 2 - PCV) 2006 Cervical Cancer Screening: P ap Smear 2008 HIV Screening 10/21/2022 Social Influencers of Health Screening 10/21/2022 COVID-19 Vaccine ( - 2023-2 5 season) 2024 Depression Screening 11/22/2024 Influenza Vaccine (#1) 2025 11/03/2024 Cholesterol Screening (Lipid Panel) 11/03/2029 11/03/2024 DTaP,Tdap,and Td Vaccines (4 - Td or Tdap) 11/03/2034 11/03/2024, 06/30/2023, 04/07/2011 Hepatitis C Screening Completed 11/03/2024 Varicella Vaccines Aged Out 11/03/2024 No longer eligible based on patient's age to complete this topic HIB Vaccines Aged Out No longer eligi ble based on patient's age to complete this topic HPV Vaccines Aged Out No longer eligi ble based on patient's age to complete this topic Hepatitis A Vaccines Aged Out No long er eligible based on patient's age to complete this topic IPV Vaccines Aged Out No longer eligi ble based on patient's age to complete this topic MMR Vaccines Aged Out No longer eligi ble based on patient's age to complete this topic Meningococcal ACWY Vaccine Aged Out N o longer eligible based on patient's age to complete this topic Meningococcal B Vaccine Aged Out No l onger eligible based on patient's age to complete this topic RSV Immunization Patients Under 20 months Aged Out No longer eligible b ased on patient's age to complete this topic Insurance MEDICAID - [place] Care Teams Division Order Analyst Relationship Specialty Start Date End Date Physician, Pcp Unknown PCP - General 02/26/25
--- NOTE | 2025-06-21 14:50 | MHC.OFFVIS ---
Intake Visit Reasons: pelvic pain Intake Note: Per patient, left side ovarian pain 2 weeks. Feels a stabbing sensatio. HX of Left sided ovarian cysts. Allergies No Known Allergies (NKA) Allergy (Mild, Verified 11/01/24 10:36) NOT APPLICABLE HPI Comments Details: The patient is presenting with LLQ pain started 1-2 weeks ago. It's intermittent in nature lasting few seconds and occurs multiple times a day. it is not associated with any constipation, no dysuria, no frequency or incontinence, no n/v, no feverishness PFSH Medical History (Updated 06/21/25 @ 15:09 by Lizandro Mendoza MD) Hx LEEP (loop electrosurgical excision procedure), cervix, Anxiety Depression Asthma Social History Alcohol intake: never Sexual orientation: Straight/Heterosexual Gender identity: Female Female Reproductive History Menstrual Age of Menarche: 11 Duration of menses: 6-7 days Date of last menstrual period: 05/20/25 control method: none Review of Systems Const All systems reviewed & are unremarkable except as noted in HPI and below Physical Exam General: Yes no CVA tenderness External Female Exam: normal external appearance and normal appearance of the urethra Speculum Exam - Vagina: normal appearance of the vagina, normal palpation, no lesions and no masses Speculum Exam - Cervix: normal appearance of the cervix, normal palpation, no lesions, no masses and nontender Bimanual exam- vagina & uterus: normal bimanual exam, normal palpation, uterine size normal, normal palpation, uterine shape normal, No Cervical tenderness present and non-tender Bimanual Exam- Adnexa, other: normal adnexae Back/Spine/Pelvis Back: no CVA tenderness Assessment & Plan Assessment & Plan (1) Pelvic pain: Code(s): R10.2 - Pelvic and perineal pain Category: Medical Plan: Urine test done in the office was negative. GC and chlamydia taken and pelvic ultrasound ordered. Discussed with the patient the differential diagnosis of pelvic pain including but not limited to adnexal, uterine masses, pelvic infections (PID), GI the (Irritable bowel syndrome, diverticulitis, others), musculoskeletal, myofascial pain abdominal wall , adhesions, endometriosis, psychological and others causes. Will check results and treat accordingly. All questions answered, the patient verbalized understanding. Instructed the patient to schedule an ultrasound and a follow-up appointment in 2 weeks. All questions answered, the patient verbalized understanding and agreed with the plan. (2) Microscopic hematuria: Code(s): R31.29 - Other microscopic hematuria Category: Medical Plan: Urine dip showed microscopic hematuria, urine culture sent. Will repeat urine dip in 2 weeks. Discussed with the patient the possible causes of microscopic hematuria including but not limited to: interstitial cystitis, polyps, stones, masses, urethral inflammatory processes and others. If Urine Culture is negative and repeat urine dip in 2 weeks shows persistent microscopic hematuria, will proceed with CT abdomen/pelvis and urology referral. Instructions given the patient to schedule a 2 week urine dip follow-up appointment. All questions answered and the patient verbalized understanding. Orders: Orders US pelvic and transvaginal Today R10.2 - Pelvic and perineal pain Coding Level of Care Code Est Pt Level 3 (02987) Diagnoses Pelvic pain R10.2 Microscopic hematuria R31.29
== END 2025-06-21 15:11 | disposition home or self-care (01) ==
LOC: HO.HWS 14:42
PROVIDERS: PCP Physician Assistant; Visit Provider Obstetrics & Gynecology
DX: R10.2 Pelvic and perineal pain (principal); R31.29 Other microscopic hematuria
CPT/HCPCS: 99213

== ENCOUNTER 2025-07-06 19:24 | Emergency (ER) | payer OTHER, SELFPAY ==
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
[2025-07-06 19:42] VITALS: BP 97/66; PULSE 70; RESP 22; TEMP 36.6; O2SAT 96; BMI 45.3
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
--- NOTE | 2025-07-06 20:10 | PC.NURSE ---
Away for xray at this time.
--- OUTSIDE RECORDS SUMMARY | 2025-07-06 20:28 | XMS_ITS | Clinical Summary ---
Author Organization [facility] Address [address] [place] [address] Phone Care Team Providers Care Junior Technical Writer Name Role Phone Physician, Pcp Unknown Primary [...] Influencers of Health Screening 10/21/2022 COVID-19 Vaccine (1 - 2023-2 5 season) 2024 Depression Screening [...] topic Insurance MEDICAID - [place] Care Teams Junior Technical Writer Relationship Specialty Start Date End Date Physician, Pcp Unknown PCP - General 02/26/25
[2025-07-06 21:06] VITALS: BP 97/66; PULSE 70; RESP 22; TEMP 36.6; O2SAT 96
== END 2025-07-06 21:06 | disposition home or self-care (01) ==
PROVIDERS: Emergency Provider Emergency Medicine; PCP Physician Assistant
DX: S20.213A Contusion of bilateral front wall of thorax, initial encounter (principal); S39.012A Strain of muscle, fascia and tendon of lower back, initial encounter; R07.89 Other chest pain; E11.9 Type 2 diabetes mellitus without complications; V43.52XA Car driver injured in collision with other type car in traffic accident, initial encounter; Y93.9 Activity, unspecified; Y92.410 Unspecified street and highway as the place of occurrence of the external cause; Y99.8 Other external cause status; Z79.899 Other long term (current) drug therapy; Z79.4 Long term (current) use of insulin
CPT/HCPCS: 71046; 72100; 99283

== ENCOUNTER → 2025-07-06 19:46 | Outpatient (BNV) | payer MEDICAID, SELFPAY | PROVIDERS: Emergency Provider Emergency Medicine; PCP Physician Assistant; Visit Provider Radiology Diagnostic Radiology | DX: M54.50 Low back pain, unspecified (principal); R07.9 Chest pain, unspecified | CPT/HCPCS: 71046; 72100 ==

== ENCOUNTER 2025-08-09 10:59 | Outpatient (REF) | payer MEDICAID, SELFPAY ==
--- NOTE | ~2025-08-09 | US_ITS ---
EXAMINATION: US PELVIS CLINICAL INFORMATION: Pelvic and perineal pain. Status post surgery secondary to cervical cancer. COMPARISON: August 04, 2024. TECHNIQUE: Ultrasound of the pelvis is performed using both transabdominal and transvaginal transducers along with Doppler. Transvaginal imaging is performed due to inadequate visualization transabdominally. FINDINGS: Uterus: The uterus is anteversion flexion and measures 11 x 6 x 6 cm. Volume: 199 cc. The double wall endometrial thickness is 2 mm. Trace of fluid. The uterus is smooth in contour and has normal myometrial echogenicity. Absent cervix. Adnexa: The ovaries are identified with flow on color Doppler interrogation.. No free fluid in the cul-de-sac. Right ovary measures 3 x 2 x 3 cm. Volume: 4 cc. Left ovary measures 2 x 2 x 1 cm. Volume: 2 cc. US/US pelvic and transvaginal IMPRESSION: No ovarian torsion. Postsurgical changes in the cervix. Electronically signed by: Marcos Patel MD 08/09/2025 12:06 PM EDT
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
--- OUTSIDE RECORDS SUMMARY | 2025-08-09 13:07 | XMS_ITS | Clinical Summary ---
Author Organization [facility] Address [address] [place] [address] Care Team Providers Care Racing Secretary And Handicapper Name Role Phone Noy Casillas PA-C Primary Care Provider [phone] Source Comments PLEASE NOTE, if this patient is a minor, it may be UNLAWFUL to discuss sensitive information that is contained in these records (such as FAMILY PLANNING, MENTAL HEALTH or SUBSTANCE ABUSE) with the minor patient's parent or other person without the patient's specific authorization.[facility] Allergies Active Allergy Reactions Criticality Noted Date Comments Metformin Diarrhea 03/04/2023 Shellfish Derived Anaphylaxis 10/26/2014 Medications leg brace (ANKLE BRACE)Indications:R ight ankle sprain Dx: Rt ankle sprain. Use for 1 month 1 Each 0 01/26/20 14 Active Miscellaneous Medical Supply miscIndications:Long n in both wrists,Bilateral hand numbness by miscellaneous route once daily Cock-up wrist splints, Left and Right Lifetime need. Dx: M25.531, R20.0 Disp #2 2 Each 05/12/20 17 Active blood-glucose meter,continuous (FREESTYLE EDGARD 3 READER) miscIndications:Typ e 2 diabetes mellitus without complication, without long-term current use of insulin ([facility]) Check sugar 3 times a day. 2 Each 07/11/20 24 Active pen needle, diabetic (BD ULTRA-FINE MICRO PEN NEEDLE) 32 gauge x 1/4 ndleIndications:Typ e 2 diabetes mellitus without complication, without long-term current use of insulin ([facility]) USE WITH INSULIN ONCE DAILY 100 Each 3 03/26/20 25 Active MISCELLANEOUS MEDICAL SUPPLY MISCIndications:Lum bartenders pain,Coccyx pain,Urinary and fecal incontinence,Weakne ss of both lower extremities by miscellaneous route 3 (three) times daily Adult pull-ons size XL to change 3 times a day. BMI 45.13. Height: 5'.0. Please send to [facility]-urology . 90 Each 04/13/20 Active blood-glucose meter monitoring kitIndications:High blood sugar daily Freestyle lite glucose monitor to check sugar once a day. Dx.E11.9. 1 Each 06/06/20 Active VENTOLIN HFA 90 mcg/actuation inhalerIndications: Mild intermittent asthma, unspecified whether complicated ([facility]) Inhale 2 Puffs into the lungs every 4 (four) hours as needed for shortness of breath or wheezing for up to 30 days. 18 g 3 06/18/20 Active rosuvastatin (CRESTOR) 20 mg tabletIndications:h ypercholesterolemia Take 1 Tablet by mouth once daily Indications: high cholesterol. 90 Tablet 1 06/18/20 Active lancets 28 gaugeIndications:Ty pe 2 diabetes mellitus without complication, without long-term current use of insulin ([facility]) Use to test blood sugar at least 3 times daily (Freestyle Lancets). 100 Each 06/18/20 Active omega 0-xax-lmq-fish oil 1,000 (120-180) mg capsuleIndications: hypertriglyceridemi a Take 1 Capsule by mouth once daily Indications: high amount of triglyceride in the blood. 270 Capsule 06/18/20 Active fenofibrate nanocrystallized 48 mg tab Take 1 Tablet by mouth nightly at bedtime. 90 Tablet 1 06/18/20 Active blood sugar diagnostic stripsIndications:H igh blood sugar 1 Each daily Freestyle lite strips to check sugar once a day. Dx.E11.9. 100 Each 06/18/20 Active alcohol swabsIndications:Ty pe 2 diabetes mellitus without complication, without long-term current use of insulin ([facility]) Use to clean finger to test blood glucose at least 3 times daily.. 100 Each 06/18/20 Active blood sugar diagnostic (BLOOD GLUCOSE TEST) stripsIndications:T ype 2 diabetes mellitus without complication, without long-term current use of insulin ([facility]) Use to test blood glucose at least 3 times daily. (Freestyle Precision Pollo). 100 Each 5 06/18/20 25 Active meloxicam (MOBIC) 15 mg tabletIndications:L umbar back pain,Coccyx pain,Left elbow pain Take 1 Tablet by mouth once daily. 90 Tablet 06/18/20 25 Active empagliflozin (JARDIANCE) 25 mg tabIndications:Type 2 diabetes mellitus without complication, without long-term current use of insulin ([facility]) Take 1 Tablet by mouth once daily. 30 Tablet 5 06/18/20 25 Active ibuprofen 800 mg tabletIndications:C hronic midline low back pain without sciatica TAKE 1 TABLET BY MOUTH THREE TIMES A DAY NEEDED FOR PAIN 90 Tablet 1 06/29/20 25 Active blood-glucose sensor (FREESTYLE EDGARD 3 PLUS SENSOR) deviIndications:Typ e 2 diabetes mellitus without complication, with long-term current use of insulin ([facility]) Place 1 sensor to back of upper arm every 15 days. Use to monitor blood sugar continuously (Freestyle Edgard 3 Plus). 2 Each 07/25/20 25 Active insulin glargine (LANTUS SOLOSTAR U-100 INSULIN) 100 unit/mL (3 mL) penIndications:Type 2 diabetes mellitus without complication, with long-term current use of insulin ([facility]) Inject 44 Units into the skin nightly at bedtime. 15 mL 07/25/20 25 Active meclizine (ANTIVERT) 25 mg tabletIndications:B enign paroxysmal positional vertigo, unspecified laterality Take 1 Tablet by mouth once daily as needed for nausea 90 Tablet 04/27/20 24 2024 Disconti nued(The rapy complete d/Not needed) FREESTYLE EDGARD 3 SENSOR parris ATTACH TO BACK OF UPPER ARM AND USE TO MONITOR BLOOD GLUCOSE AT LEAST THREE TIMES DAILY - CHANGE EVERY 14 DAYS Authorized by: NOY CASILLAS 2 Each 5 12/12/19 25 2024 Disconti nued(Dup licate (E-Cance l Not Sent)) insulin glargine (LANTUS SOLOSTAR U-100 INSULIN) 100 unit/mL (3 mL) penIndications:Type 2 diabetes mellitus without complication, without long-term current use of insulin ([facility]) INJECT 36 UNITS INTO THE SKIN NIGHTLY AT BEDTIME. 15 mL 1 05/28/20 25 2024 Disconti nued(Reo rder (E-Cance l Not Sent)) blood-glucose sensor (FREESTYLE EDGARD 3 PLUS SENSOR) deviIndications:Con trolled type 2 diabetes mellitus without complication, with long-term current use of insulin ([facility]) Place 1 sensor to back of upper arm every 15 days. Use to monitor blood sugar continuously (Freestyle Edgard 3 Plus). 2 Each 06/06/20 25 2024 Disconti nued(Reo rder (E-Cance l Not Sent)) Active Problems Problem Noted Date Diagnosed Date Urinary and fecal incontinence 04/25/2025 Lack of access to transportation 03/01/2025 Housing instability 06/30/2023 Type 2 diabetes mellitus wit hout complication, with long-term current use of insulin ([facility]) 06/02/2023 Benign paroxysmal positional vertigo 02/18/2023 High cholesterol 02/18/2023 Food insecurity 02/16/2023 Financial difficulties 02/16/2023 Posttraumatic stress disorder 06/30/2017 Overview (06/30/2017): [facility], Therapist: BETSY Wilkerson Dysthymic disorder 06/30/2017 Overview (06/30/2017): [facility], Therapist: BETSY Wilkerson Borderline personality disorder ([facility]) 06/30/2017 Overview (06/30/2017): [facility], Therapist: BETSY Wilkerson Carpal tunnel syndrome of right wrist 06/28/2017 Overview (06/28/2017): EMG 06/22/17 at [facility] shows mild right median neuropathy across the carpal tunnel , test is otherwise normal. GERD (gastroesophageal reflux disease) 12/05/201 4 Asthma ([facility]) 10/26/2014 Class 3 severe obesity due t o excess calories with serious comorbidity and body mass index (BMI) of 40.0 to 44.9 in adult ([facility]) 01/25/2014 Migraine headache 01/25/2014 Resolved Problems Problem Noted Date Diagnosed Date Resolved Date Lactating mother ([facility]) 01/25/2014 1 12/27/2013 Encounters Date Type Department Care Team Description 08/04/2025 Results Follow-Up [address] [phone] Noy Casillas PA-C 07/25/2025 4:00 PM EDT Telemedicine Visit [address] [address] Dominic Helms PharmD 06/13/2025 Interim Notes [address] [phone] Jessie Mcdonald [place] 06/08/2025 Results Follow-Up [address] [phone] Dominic Helms PharmD 06/06/2025 1:40 PM EDT Office Visit [address] [phone] Dominic Helms PharmD from Last 3 Months Immunizations Immunization Administration Dates Next Due Influenza (FLUBLOK),recombinant,injectable,preservative Free 11/03/2024 TDAP 11/03/2024,04/07/2011 Td (adult),2 Lf tetanus toxo id (TDVAX), preservative free 06/30/2023 Varicella (Varivax), Live Vaccine 11/03/2024 Family History Medical History Relation Name Comments Cancer Father Depression Father Diabetes Father Hypertension Father Depression Mother Heart Problems Mother Hypertension Mother Vision Problems Sister 1 Depression Sister 2 Heart Problems Sister 2 Heart Problems Son 1 2mo Relation Name Status Comments Brother 1 Alive Brother 2 Alive Daughter 2yo Alive Father Alive Mother Alive Sister 1 Alive Sister 2 Alive Son 1 2mo Alive Son 2 5yo Alive Son 3 4yo Alive Social History Tobacco Use Types Packs/Day Years Used Date Smoking Tobacco: Never Passive Smoke Exposure: Never Smokeless Tobacco: Never Tobacco Cessation:Counseling Given: Yes Alcohol Use Standard Drinks/Week Comments No 0 [...] Orientation Straight 10/04/2017 5: 54 AM PST Last Filed Vital Signs Vital Sign Reading Time Taken Comments Blood Pressure 130/90 06/06/2025 1:57 PM EDT Pulse 68 06/06/2025 1:57 PM EDT Temperature 36.7 C (98.1 F) 06/06/2025 1:57 PM EDT Respiratory Rate 16 06/06/2025 1:57 PM EDT Oxygen Saturation 97% 06/06/2025 1:57 PM EDT Inhaled Oxygen Concentration - - Weight 103.7 kg (228 lb 9.6 oz) 06/06/2025 1:57 PM EDT Height 152.4 cm (5') 06/06/2025 1:57 PM EDT Body Mass Index 44.65 06/06/2025 1:57 PM EDT Plan of Treatment Upcoming Encounters Date Type Department Care Team (Late st Contact Info) Description 08/10/2025 2:20 PM EDT Office Visit [facility] [address] [place] [address] Hunter Grace, [place] [address] [place] [address] 08/29/2025 4:20 PM EDT Office Visit [address] [phone] Noy Casillas PA-C [address] [place] [address] 09/13/2025 10:20 AM EDT Office Visit [address] [phone] Dominic Helms, PharmD [address] [place] [address] Health Maintenance Due Date Last Done Comments Anxiety Screening 1987 Dental Examination 1987 HPV Screening 1987 Retinopathy Screening 2000 Imm-Hepatitis B (1 of 3 - 19 + 3-dose series) 2006 Imm-Pneumococcal (1 of 2 - PCV) 2006 Imm-HPV (1 - 3-dose SCDM series) 2014 Diabetes Foot Exam 06/30/2024 06/30/2023 [id number] ( - season) 2025 Imm-Influenza (#1) 2025 11/03/2024 Depression Monitoring 08/04/2025 05/04/2025 , 11/03/2024, 06/30/2023, Additional history exists Hemoglobin A1c 09/06/2025 06/06/2025, 02/20, 11/03/2024, Additional history exists Pap Smear 10/02/2025 10/02/2022, 03/16/2012 Annual Wellness (Adult): Indicated (All Coverage) 11/03/2025 11/03/2024, 06/30/2023 Serum Creatinine 11/03/2025 11/03/2024, , 06/30/2023, Additional history exists Urine Albumin Creatinine Rat io Screening 11/03/2025 11/03/2024, 11/03/2024, 06/30/2023 Relationship Safety Screening/Counseling 05/04/2026 05/04/2025, 06/30/2023, 02/16/2023 Hypertension Screening (#1) 06/06/2026 Lipid Screening 06/06/2026 06/06/2025, 10/22, 11/03/2024, Additional history exists Tobacco Screening 07/25/2026 07/25/2025, 06/14/2024 Cervical Cancer Screening 10/02/2027 Pap + HPV 10/02/2027 10/02/2022 (Melida culp by Outside Provider) Imm-DTaP/Tdap/Td (4 - Td or Tdap) 11/03/2034 11/03/2024, 06/30/2023, 04/07/2011 HIV Screening Completed 03/04/2023, 07/24, 02/12/2014 Hepatitis C Screening Completed 11/03/2024 , 03/04/2023, 08/16/2017, Additional history exists Alcohol and Drug Screen Completed 12/29/19, 06/14/2024, 02/16/2023, Additional history exists Cervical Ablation/Cold-Knife Conization Discontinued Cervical Cryotherapy Discontinued Colposcopy Discontinued Endometrial Biopsy Discontinued Excision/Leep Discontinued HPV Genotyping Discontinued Vaginal Pap Discontinued Vulvoscopy Discontinued Procedures Procedure Name Priority Date/Time Associated Diagnosis Comments IMAGING SCANNED DOCUMENT 07/06/2025 3:00 AM EDT IMAGING SCANNED DOCUMENT 07/06/2025 3:00 AM EDT OTHER ORDERS SCANNED DOCUMENT 07/05/2025 3:00 AM EDT MRI LUMBAR/SACRAL SPINE WITHOUT CONTRAST-[id number] Urgent 07/01/2025 3:00 AM EDT Lumbar back pain Coccyx pain Urinary and fecal incontinence Weakness of both lower extremities REFERRAL SCANNED DOCUMENT 06/21/2025 3:00 AM EDT REFERRAL SCANNED DOCUMENT 06/21/2025 3:00 AM EDT LAB SCANNED DOCUMENT 06/21/2025 3:00 AM EDT MEDICATIONS SCANNED DOCUMENT 06/07/2025 3:00 AM EDT MEDICATIONS SCANNED DOCUMENT 06/07/2025 3:00 AM EDT LIPID PANEL Routine 06/06/2025 2:18 PM EDT Type 2 diabetes mellitus without complication, with long-term current use of insulin ([facility]) HEMOGLOBIN GLYCOSYLATED A1C Routine 06/06/2025 2:18 PM EDT Type 2 diabetes mellitus without complication, with long-term current use of insulin ([facility]) GLUCOSE, BLOOD BY GLUCOSE MONITORING DEVICE (CLIA WAIVED)POCT Routine 06/06/2025 2:04 PM EDT Type 2 diabetes mellitus without complication, with long-term current use of insulin ([facility]) COMPREHENSIVE METABOLIC PANEL Routine 11/03/2024 3:38 PM EST Type 2 diabetes mellitus without complication, without long-term current use of insulin ([facility]) ACUTE HEPATITIS PANEL W/RFLX Routine 11/03/2024 3:38 PM EST Immunization due MICROALBUMIN/CREATININ E RATIO, URINE, RANDOM Routine 11/03/2024 3:38 PM EST Type 2 diabetes mellitus without complication, without long-term current use of insulin ([facility]) HIV 1/2 AG & AB W/RFLX (4TH GEN) Routine 03/04/2023 11:14 AM EDT Encounter to establish care PAP SMEAR 10/02/2022 3:00 AM EST from Last 3 Months or Most Recently Relevant to Health Maintenance Results * IMAGING SCANNED DOCUMENT (07/06/2025 3:00 AM EDT) Only the most recent of2 resultswithin the time period is included. 07/06/2025 3:00 AM EDT Noy Casillas PA-C SCAN IMAGING Final Result * OTHER ORDERS SCANNED DOCUMENT (07/05/2025 3:00 AM EDT) 07/05/2025 3:00 AM EDT us Noy Casillas PA-C SCAN OTHER ORDERS Final Resu lt * MRI LUMBAR/SACRAL SPINE WITHOUT CONTRAST-[id number] (07/01/2025 3:00 AM EDT) 07/01/2025 3:00 AM EDT us Noy Casillas PA-C IMG MRI Final Result * REFERRAL SCANNED DOCUMENT (06/21/2025 3:00 AM EDT) Only the most recent of2 resultswithin the time period is included. 06/21/2025 3:00 AM EDT us Noy Casillas PA-C SCAN REFERRAL Final Result * LAB SCANNED DOCUMENT (06/21/2025 3:00 AM EDT) 06/21/2025 3:00 AM EDT us Noy Casillas PA-C SCAN LAB Final Result * MEDICATIONS SCANNED DOCUMENT (06/07/2025 3:00 AM EDT) Only the most recent of2 resultswithin the time period is included. 06/07/2025 3:00 AM EDT us Noy Casillas PA-C SCAN MEDS OTHER ORDERS Final Result * (ABNORMAL) HEMOGLOBIN GLYCOSYLATED A1C Routine (06/06/2025 2:18 PM EDT) HEMOGLOBIN A1C 9.3(H) <5.7 % [facility] Comment: For someone without known diabetes, a hemoglobin A1c value of 6.5% or greater indicates that they may have diabetes and this should be confirmed with a follow-up test. For someone with known diabetes, a value <7% indicates that their diabetes is well controlled and a value greater than or equal to 7% indicates suboptimal control. A1c targets should be individualized based on duration of diabetes, age, comorbid conditions, and other considerations. Currently, no consensus exists regarding use of hemoglobin A1c for diagnosis of diabetes for children. Blood Blood / Unknown 06/06/2025 2 :18 PM EDT 06/06/2025 2:18 PM EDT Narrative [facility] - 06/07/2025 4:12 AM EDT FASTING:YES Anand Arianna PharmD LAB - BLOOD DRAW Edited R esult - Final [facility] [address] [address], [facility] [address] [place] [phone] * (ABNORMAL) LIPID PANEL Routine (06/06/2025 2:18 PM EDT) [facility] Signature CHOLESTEROL, TOTAL 190 <200 mg/dL [facility] HDL CHOLESTEROL 41(L) > OR = 50 mg/dL [facility] TRIGLYCERIDES 421(H) <150 mg/dL [facility] Comment: If a non-fasting specimen was collected, consider repeat triglyceride testing on a fasting specimen if clinically indicated. Joellen et al. J. of Clin. Lipidol. 2015;9:129-169. LDL-CHOLESTEROL See Note [facility] [facility] Comment: LDL cholesterol not calculated. Triglyceride levels greater than 400 mg/dL invalidate calculated LDL results. Reference range: <100 Desirable range <100 mg/dL for primary prevention; <70 mg/dL for patients with CHD or diabetic patients with > or = 2 CHD risk factors. LDL-C is now calculated using the Ruperto-Rossana calculation, which is a validated novel method providing better accuracy than the Friedewald equation in the estimation of LDL-C. Ruperto SS et al. SHEFALI. 2013;310(19): 1328-1959 (http://education.[employer]/faq/YGW123) CHOL/HDLC RATIO 4.6 <5.0 (calc) [facility] NON-HDL CHOLESTEROL 149(H) <130 mg/dL (calc) [facility] Comment: For patients with diabetes plus 1 major ASCVD risk factor, treating to a non-HDL-C goal of <100 mg/dL (LDL-C of <70 mg/dL) is considered a therapeutic option. Blood Blood / Unknown 06/06/2025 2 :18 PM EDT 06/06/2025 2:18 PM EDT Narrative [facility] - 06/07/2025 4:12 AM EDT FASTING:YES Anand Keller PharmD LAB - BLOOD DRAW Final Re sult Performing Organization Address City/[facility] Co de Phone Number jslyhl [facility] [address] [address], [facility] [address] [address] * (ABNORMAL) GLUCOSE, BLOOD BY GLUCOSE MONITORING DEVICE (CLIA WAIVED)POCT Routine (06/06/2025 2:04 PM EDT) GLUCOSE 130(A) 70 - 100 mg/dL [facility] OFFICE POCT Capillary Blood Blood / Unknown 2:04 PM EDT Dominic Analia PharmD LAB - BLOOD DRAW Final Resu lt Performing Organization Address [facility] de Phone Number [facility] POCT * HEPATITIS PANEL W/RFLX (11/03/2024 3:38 PM EST) HEPATITIS A IGM ANTIBODY NON-REACT MART NON-REACT MART [facility] COMMENT [facility]hl [facility] HEPATITIS B SURFACE ANTIGEN NON-REACT MART NON-REACT MART [facility] COMMENT js[facility]hl [facility] HEPATITIS B CORE IGM ANTIBODY NON-REACT MART NON-REACT MART js[facility]hl [facility] COMMENT [facility]hl [facility] HEPATITIS C ANTIBODY NON-REACT MART NON-REACT MART [facility] Comment: HCV antibody was non-reactive. There is no laboratory evidence of HCV infection. In most cases, no further action is required. However, if recent HCV exposure is suspected, a test for HCV RNA (test code 67483) is suggested. For additional information please refer to http://education.auctionPAL/faq/JJA69w1 (This link is being provided for informational/ educational purposes only.) Blood Blood / Unknown 11/03/2024 3 :38 PM EST 11/03/2024 3:39 PM EST Narrative [facility] - 11/07/2024 10:02 PM EST FASTING:UNKNOWN For additional information, please refer to http://Cloud [employer].auctionPAL/faq/ECY922 (This link is being provided for informational/ educational purposes only.) For additional information, please refer to http://[employer]PAL/faq/OLC164 (This link is being provided for informational/ educational purposes only.) For additional information, please refer to http://[employer].auctionPAL/faq/PHE626 (This link is being provided for informational/ educational purposes only.) Noy Casillas PA-C LAB - BLOOD DRAW Final Resul t [facility] [address] [address], [facility] [address] [address] * MICROALBUMIN/CREATININE RATIO, URINE, RANDOM (11/03/2024 3:38 PM EST) CREATININE, RANDOM URINE 71 20 - 275 mg/dL [facility] MICROALBUMIN 0.2 mg/dL [facility] Comment: Reference Range Not established MICROALBUMIN/CREA TININE RATIO, RANDOM URINE 3 <30 mg/g creat [facility] Comment: The ADA defines abnormalities in albumin excretion as follows: Albuminuria Category Result (mg/g creatinine) Normal to Mildly increased <30 Moderately increased 30-299 Severely increased > OR = 300 The ADA recommends that at least two of three specimens collected within a 3-6 month period be abnormal before considering a patient to be within a diagnostic category. Urine Urine specimen / Unknown 11/03/2024 3:38 PM EST 11/03/2024 3:39 PM EST Narrative [facility] - 11/07/2024 10:02 PM EST FASTING:UNKNOWN Noy Casillas PA-C LAB URINE AMBULATORY Final R esult js[facility] [address] [address], jslyhl [facility] [address] [place] [address] * (ABNORMAL) COMPREHENSIVE METABOLIC PANEL (11/03/2024 3:38 PM EST) GLUCOSE 186(H) 65 - 99 mg/dL [facility] Comment: Fasting reference interval For someone without known diabetes, a glucose value >125 mg/dL indicates that they may have diabetes and this should be confirmed with a follow-up test. UREA NITROGEN (BUN) 16 7 - 25 mg/dL [facility] CREATININE (blood) 1.08(H) 0.50 - 0.97 mg/dL [facility] EGFR 68 > OR = 60 mL/min/1. 73m2 [facility] BUN/CREATININE RATIO 15 6 - 22 (calc) [facility] SODIUM 136 135 - 146 mmol/L [facility] POTASSIUM 4.6 3.5 - 5.3 mmol/L [facility] CHLORIDE 100 98 - 110 mmol/L [facility] CARBON DIOXIDE 29 20 - 32 mmol/L [facility] CALCIUM 9.8 8.6 - 10.2 mg/dL [facility] PROTEIN, TOTAL 7.2 6.1 - 8.1 g/dL [facility] ALBUMIN 4.2 3.6 - 5.1 g/dL [facility] GLOBULIN 3.0 1.9 - 3.7 g/dL (calc) [facility] ALBUMIN/GLOBULI N RATIO 1.4 1.0 - 2.5 (calc) js[facility] BILIRUBIN, TOTAL 0.4 0.2 - 1.2 mg/dL [facility] ALKALINE PHOSPHATASE 89 31 - 125 U/L [facility] AST 19 10 - 30 U/L [facility] ALT 28 6 - 29 U/L [facility] Blood Blood / Unknown 11/03/2024 3 :38 PM EST 11/03/2024 3:39 PM EST Narrative [facility] - 11/07/2024 10:02 PM EST FASTING:UNKNOWN Noy Manas TERRELL-C LAB - BLOOD DRAW Edited Resu lt - Final Performing Organization Address City/[facility]/ZIP Co de Phone Number jslyhl [facility] [address] [place] [address], jslyhl [address] [address] * HIV Ag & Ab with Reflex Western Blot (03/04/2023 11:14 AM EDT) HIV AG/AB, 4TH GEN NON-REAC TIVE NON-REAC TIVE [facility]hl [facility] Comment: HIV-1 antigen and HIV-1/HIV-2 antibodies were not detected. There is no laboratory evidence of HIV infection. PLEASE NOTE: This information has been disclosed to you from records whose confidentiality may be protected by state law. If your state requires such protection, then the state law prohibits you from making any further disclosure of the information without the specific written consent of the person to whom it pertains, or as otherwise permitted by law. A general authorization for the release of medical or other information is NOT sufficient for this purpose. For additional information please refer to http://education.Adviesmanager.nl.[employer]ore Me/faq/YPJ465 (This link is being provided for informational/ educational purposes only.) The performance of this assay has not been clinically validated in patients less than 2 years old. Blood Blood / Unknown 03/04/2023 1 1:14 AM EDT 03/04/2023 11:14 AM EDT Noy Casillas PAEarlier [facility] - BLOOD DRAW Final Resul t [facility] [address] [address], [address] [address] * PAP SMEAR (10/02/2022 3:00 AM EST) 10/02/2022 3:00 AM EST Noy Casillas PAEarlier [facility] - PATHOLOGY AND CYTOLOGY AMBULATORY Final Result from Last 3 Months or Most Recently Relevant to Health Maintenance Insurance [address] [employer] Care Teams Racing Secretary And Handicapper Relationship Specialty Start Date End Date Noy Casillas PA-C [address] [place] [id number] PCP - General Internal Medicine 05/29/22
--- OUTSIDE RECORDS SUMMARY | 2025-08-09 13:07 | XMS_ITS | Clinical Summary ---
Author Organization [facility] Address [address] [place] [address] Phone Care Team Providers Care Learn To Swim Instructor Name Role Phone Physician, Pcp Unknown Primary [...] 10/21/2022 Social Influencers of Health Screening 10/21/2022 Depression Screening 11/22/2024 COVID-19 Vaccine ( - 2023-2 5 season) 2025 Influenza Vaccine (#1) 2025 11/03/2024 Cholesterol Screening [...] topic Insurance MEDICAID - [place] Care Teams Learn To Swim Instructor Relationship Specialty Start Date End Date Physician, Pcp Unknown PCP - General 02/26/25
== END 2025-08-09 11:00 | disposition home or self-care (01) ==
LOC: HO.US 10:59
PROVIDERS: PCP Physician Assistant; Visit Provider Obstetrics & Gynecology
DX: R10.2 Pelvic and perineal pain (principal)
CPT/HCPCS: 76830; 76856

== ENCOUNTER → 2025-08-09 11:01 | Outpatient (BNV) | payer MEDICAID, SELFPAY | PROVIDERS: PCP Physician Assistant; Visit Provider Radiology Diagnostic Radiology | DX: R10.2 Pelvic and perineal pain (principal) | CPT/HCPCS: 76830; 76856 ==

== ENCOUNTER 2025-08-20 10:54 | Outpatient (AMB) | payer MEDICAID, SELFPAY ==
--- NOTE | 2025-08-20 11:07 | A.OFFVIS_ITS ---
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 No complaints. In addition the the patient is presenting for follow-up regarding her pelvic pain. TThe following workup was done so far: GC/CT negative. Last visit urine test was negative. Last visit urine dip showed microscopic hematuria. Last Pap/HPV was negative in 08/1508/09/2025 pelvic ultrasound showed the following: Uterus: The uterus is anteversion flexion and measures 11 x 6 x 6 cm. Volume: 199 cc. The double wall endometrial thickness is 2 mm. Trace of fluid. The uterus is smooth in contour and has normal myometrial echogenicity. Absent cervix. Adnexa: The ovaries are identified with flow on color Doppler interrogation.. No free fluid in the cul-de-sac. Right ovary measures 3 x 2 x 3 cm. Volume: 4 cc. Left ovary measures 2 x 2 x 1 cm. Volume: 2 cc. [facility] Medical History (Updated 08/20/25 @ 11:23 by Lizandro Mendoza MD) Hx LEEP (loop electrosurgical excision procedure), cervix, Anxiety Depression Asthma Surgical History (Updated 08/20/25 @ 11:12 by Gayathri Wilkerson CMA) History of loop electrical excision procedure (LEEP) Family History (Updated 08/20/25 @ 11:14 by Gayathri Wilkerson CMA) Father Diabetes HTN (hypertension) Mother HTN (hypertension) Maternal Grandmother Breast cancer Maternal Grandfather Prostate cancer Maternal Aunt Leukemia Social History (Updated 08/20/25 @ 11:15 by Gayathri Wilkerson CMA) Household Members: Significant Other and Children Housing: Apartment Alcohol intake: never Patient Tobacco Use Status: Never used Tobacco Current occupational status: disabled Sexually active: Yes Sexual orientation: Straight/Heterosexual Gender identity: Female Female Reproductive History Menstrual Age of Menarche: 11 Date of last menstrual period: 08/16/25 Total pregnancies: 9 Full term: 6 Number of Living Children: 6 Ab spontaneous: 3 Date of last pap smear: 02/05/22 Review of Systems Const All systems reviewed & are unremarkable except as noted in HPI and below Card Reports as per HPI Resp Reports as per HPI GI Reports as per HPI and Reports no additional complaints Reports as per HPI Physical Exam Vital Signs: Last Vital Signs BP 98/66 08/20/25 11:08 BMI result Body Mass Index 45.9 Const General: cooperative, healthy appearing and comfortable Chest Chest palpation & inspection: normal inspection of the chest and normal palpation of entire chest wall Breast/axilla inspection: normal inspection of the breasts and normal inspection of the axillae Breast/axilla palpation: normal palpation of the breasts, normal palpation of the axillae and no axillary lymphadenopathy Resp Effort & Inspection: normal respiratory effort Auscultation: clear to auscultation bilaterally Percussion: percussion normal Cardio Palpation: normal PMI Rate: regular rate Rhythm: regular rhythm Heart sounds: no murmurs and no rubs Peripheral pulses: Peripheral pulses 2+ throughout GI Inspection: Yes normal to inspection Palpation (GI): Soft to palpation, nontender, no guarding, not rigid and No hepatosplenomegaly present Percussion: Yes normal to percussion Auscultation: normal bowel sounds Rectal Exam - Female: deferred General: Yes bladder normal to palpation External Female Exam: No lesion Speculum Exam - Vagina: normal appearance of the vagina, normal palpation, normal vaginal discharge and not erythematous Speculum Exam - Cervix: normal appearance of the cervix and normal palpation Bimanual exam- vagina & uterus: normal bimanual exam, normal palpation, uterine size normal, bladder normal to palpation, consistency normal and normal palpation Bimanual Exam- Adnexa, other: normal adnexae, no masses and no tenderness Assessment & Plan Assessment & Plan (1) Well woman exam: Comment: History of LUISITO 2-3 status post LEEP in 07/11 was positive margins followed by ASCUS HPV negative, colpo , biopsy, ECC negative in 11/10 Co testing negative in 02/10 08/15 co testing negative Code(s): Z01.419 - Encounter for gynecological examination (general) (routine) without abnormal findings Category: Medical Plan: Cotesting done. Counseled the patient about the recommended dietary allowance of 1000 mg of Calcium & 600 IU of vitamin D. The patient was instructed to perform monthly self-breast exams and to schedule an annual exam in a year; All questions answered and the patient verbalized understanding. Instructed the patient to schedule annual exam in a year (2) Pelvic pain: Code(s): R10.2 - Pelvic and perineal pain Category: Medical Plan: Discussed with the patient the results of the workup done including negative GC/chlamydia, urine dip, urine test and pelvic ultrasound. Differential diagnosis of tunnel elastic operator chainstitch causes that have not be ruled out yet include but not limited to endometriosis, pelvic adhesions , or others. Recommended for the patient to see her PCP for further workup for non tunnel elastic operator chainstitch causes; if the all the results are negative and the patient's pelvic pain is persistent, instructions given to patient to call back for further testing. Meanwhile, instructions were given the patient to go to emergency room or call in case of fever above 100.4, heavy vaginal bleeding, persistence or worsening of her pelvic pain. All questions answered, the patient verbalized understanding. (3) Microscopic hematuria: Code(s): R31.29 - Other microscopic hematuria Category: Medical Plan: The patient is on her menstrual cycle today, instructions given the patient is schedule a 2 week follow-up appointment for repeat urine dip Coding Level of Care Code Est Pt Level 3 (70583) Est Pt Prev Care 18-39y(33379) Diagnoses Well woman exam Z01.419 Pelvic pain R10.2 Microscopic hematuria R31.29
[2025-08-20 11:08] VITALS: BP 98/66; BMI 45.9
--- OUTSIDE RECORDS SUMMARY | 2025-08-20 12:24 | XMS_ITS | Clinical Summary ---
Author Organization [facility] Address [address] [place] [address] Phone Care Team Providers Care Geriatrician Name Role Phone Physician, Pcp Unknown Primary [...] topic Insurance MEDICAID - [place] Care Teams Geriatrician Relationship Specialty Start Date End Date Physician, Pcp Unknown PCP - General 02/26/25
--- OUTSIDE RECORDS SUMMARY | 2025-08-20 12:24 | XMS_ITS | Clinical Summary ---
Author Organization [facility] Address [address] [place] [address] Care Team Providers Care Air And Hydronic Balancing Technician Name Role Phone Noy Casillas PA-C Primary Care Provider Source Comments PLEASE NOTE, if this patient [...] complication, without long-term current use of insulin ([facility]) Check sugar 3 times a day. 2 Each 07/11/20 24 Active pen needle, diabetic (BD ULTRA-FINE MICRO PEN NEEDLE) 32 gauge x 1/4 ndleIndications:Typ e 2 diabetes mellitus without complication, without long-term current use of insulin ([facility]) USE WITH INSULIN ONCE DAILY 100 Each 3 03/26/20 25 Active MISCELLANEOUS MEDICAL SUPPLY MISCIndications:Lum bark grinder pain,Coccyx pain,Urinary and fecal incontinence,Weakne ss of both lower extremities by miscellaneous route 3 (three) times daily Adult pull-ons size XL to change 3 times a day. BMI 45.13. Height: 5'.0. Please send to [facility]urology . 90 Each 04/13/20 Active blood-glucose meter monitoring kitIndications:High blood sugar daily Freestyle lite glucose monitor to check sugar once a day. Dx.E11.9. 1 Each 06/06/20 Active VENTOLIN HFA 90 mcg/actuation inhalerIndications: Mild intermittent asthma, unspecified whether complicated ([facility]) Inhale 2 Puffs into the [...] complication, without long-term current use of insulin ([facility]) Use to test blood sugar at least 3 times daily (Freestyle Lancets). 100 Each 06/18/20 Active omega 3-lqb-owk-fish oil 1,000 (120-180) mg capsuleIndications: hypertriglyceridemi a [...] complication, without long-term current use of insulin ([facility]) Use to clean finger to test blood glucose at least 3 times daily.. 100 Each 06/18/20 Active blood sugar diagnostic (BLOOD GLUCOSE TEST) stripsIndications:T ype 2 diabetes mellitus without complication, without long-term current use of insulin ([facility]) Use to test blood glucose at least 3 times daily. (Freestyle Precision Pollo). 100 Each 5 06/18/20 25 Active meloxicam (MOBIC) 15 mg tabletIndications:L umbar back pain,Coccyx pain,Left elbow pain Take 1 Tablet by mouth once daily. 90 Tablet 06/18/20 25 Active empagliflozin (JARDIANCE) 25 mg tabIndications:Type 2 diabetes mellitus without complication, without long-term current use of insulin ([facility]) Take 1 Tablet by mouth [...] complication, with long-term current use of insulin ([facility]) Place 1 sensor to back of upper arm every 15 days. Use to monitor blood sugar continuously (Freestyle Edgard 3 Plus). 2 Each 07/25/20 25 Active insulin glargine (LANTUS SOLOSTAR U-100 INSULIN) 100 unit/mL (3 mL) penIndications:Type 2 diabetes mellitus without complication, with long-term current use of insulin ([facility]) Inject 44 Units into the [...] complication, without long-term current use of insulin ([facility]) INJECT 36 UNITS INTO THE SKIN NIGHTLY AT BEDTIME. 15 mL 1 05/28/20 25 2024 Disconti nued(Reo rder (E-Cance l Not Sent)) blood-glucose sensor (FREESTYLE EDGARD 3 PLUS SENSOR) deviIndications:Con trolled type 2 diabetes mellitus without complication, with long-term current use of insulin ([facility]) Place 1 sensor to back of upper [...] complication, with long-term current use of insulin ([facility]) 06/02/2023 Benign paroxysmal positional vertigo 02/18/2023 High cholesterol 02/18/2023 Food insecurity 02/16/2023 Financial difficulties 02/16/2023 Posttraumatic stress disorder 06/30/2017 Overview (06/30/2017): [facility], Therapist: BETSY Wilkerson Dysthymic disorder 06/30/2017 Overview (06/30/2017): [facility], Therapist: BETSY Wilkerson Borderline personality disorder ([facility]) 06/30/2017 Overview (06/30/2017): [facility], Therapist: BETSY Wilkerson Carpal tunnel syndrome of right wrist 06/28/2017 Overview (06/28/2017): EMG 06/22/17 at [facility] shows mild right median neuropathy across the carpal tunnel , test is otherwise normal. GERD (gastroesophageal reflux disease) 12/05/201 4 Asthma ([facility]) 10/26/2014 Class 3 severe obesity due t o excess calories with serious comorbidity and body mass index (BMI) of 40.0 to 44.9 in adult ([facility]) 01/25/2014 Migraine headache 01/25/2014 Resolved Problems Problem Noted Date Diagnosed Date Resolved Date Lactating mother ([facility]) 01/25/2014 1 12/27/2013 Encounters Date Type Department Care Team Description 08/04/2025 Results Follow-Up [address] [address] Noy Casillas PA-C 07/25/2025 4:00 PM EDT Telemedicine Visit [address] [address] Dominic Helms PharmD 06/13/2025 Interim Notes [address] [address] Jessie Mcdonald [place] 06/08/2025 Results Follow-Up [address] [address] Dominic Helms PharmD 06/06/2025 1:40 PM EDT Office Visit [address] [address] Dominic Helms PharmD from Last 3 Months [...] Care Team (Late st Contact Info) Description 08/29/2025 4:20 PM EDT Office Visit [address] [address] Noy Casillas PA-C [address] [place] [address] 09/13/2025 10:20 AM EDT Office Visit [address] [phone] Dominic Helms, PharmD [address] [place] [address] Health Maintenance Due Date Last Done Comments Anxiety Screening 1987 Dental Examination 1987 HPV Screening 1987 Retinopathy Screening 2000 Imm-Hepatitis B (1 of 3 - 19 + 3-dose series) 2006 Imm-Pneumococcal (1 of 2 - PCV) 2006 Imm-HPV (1 - 3-dose SCDM series) 2014 Diabetes Foot Exam 06/30/2024 06/30/2023 [id number] ( - season) 2025 Imm-Influenza (#1) 2025 [...] Date/Time Associated Diagnosis Comments IMAGING SCANNED DOCUMENT 08/09/2025 3:00 AM EDT IMAGING SCANNED DOCUMENT 08/09/2025 3:00 AM EDT IMAGING SCANNED DOCUMENT 07/06/2025 3:00 AM EDT IMAGING SCANNED DOCUMENT 07/06/2025 3:00 AM EDT OTHER ORDERS SCANNED DOCUMENT 07/05/2025 3:00 AM EDT MRI LUMBAR/SACRAL SPINE WITHOUT CONTRAST-[id number] Urgent 07/01/2025 3:00 AM EDT Lumbar back [...] complication, with long-term current use of insulin ([facility]) HEMOGLOBIN GLYCOSYLATED A1C Routine 06/06/2025 2:18 PM EDT Type 2 diabetes mellitus without complication, with long-term current use of insulin ([facility]) GLUCOSE, BLOOD BY GLUCOSE MONITORING DEVICE (CLIA WAIVED)POCT Routine 06/06/2025 2:04 PM EDT Type 2 diabetes mellitus without complication, with long-term current use of insulin ([facility]) COMPREHENSIVE METABOLIC PANEL Routine 11/03/2024 3:38 PM EST Type 2 diabetes mellitus without complication, without long-term current use of insulin ([facility]) ACUTE HEPATITIS PANEL W/RFLX Routine 11/03/2024 3:38 PM EST Immunization due MICROALBUMIN/CREATININ E RATIO, URINE, RANDOM Routine 11/03/2024 3:38 PM EST Type 2 diabetes mellitus without complication, without long-term current use of insulin ([facility]) HIV 1/2 AG & AB W/RFLX (4TH GEN) Routine 03/04/2023 11:14 AM EDT Encounter to establish care PAP SMEAR 10/02/2022 3:00 AM EST from Last 3 Months or Most Recently Relevant to Health Maintenance Results * IMAGING SCANNED DOCUMENT (08/09/2025 3:00 AM EDT) Only the most recent of4 resultswithin the time period is included. 08/09/2025 3:00 AM EDT us Noy Casillas PA-C SCAN IMAGING Final Result * OTHER ORDERS SCANNED DOCUMENT (07/05/2025 3:00 AM EDT) 07/05/2025 3:00 AM EDT us Noy Casillas PA-C SCAN OTHER ORDERS Final Resu lt * MRI LUMBAR/SACRAL SPINE WITHOUT CONTRAST-[id number] (07/01/2025 3:00 AM EDT) 07/01/2025 3:00 AM EDT Noy Casillas PA-C IMG MRI Final Result * REFERRAL SCANNED DOCUMENT (06/21/2025 3:00 AM EDT) Only the most recent of2 resultswithin the time period is included. 06/21/2025 3:00 AM EDT us Noy Casillas PA-C SCAN REFERRAL Final Result * LAB SCANNED DOCUMENT (06/21/2025 3:00 AM EDT) 06/21/2025 3:00 AM EDT Noy Casillas PA-C SCAN LAB Final Result * MEDICATIONS SCANNED DOCUMENT (06/07/2025 3:00 AM EDT) Only the most recent of2 resultswithin the time period is included. 06/07/2025 3:00 AM EDT Noy Casillas PA-C SCAN MEDS OTHER ORDERS Final Result * (ABNORMAL) HEMOGLOBIN GLYCOSYLATED A1C Routine (06/06/2025 2:18 PM EDT) HEMOGLOBIN A1C 9.3(H) <5.7 % [employer] [facility] Comment: For someone without known [...] PM EDT 06/06/2025 2:18 PM EDT Narrative [employer] - 06/07/2025 4:12 AM EDT FASTING:YES Anand Keller PharmD LAB - BLOOD DRAW Edited R esult - Final [employer] [address] [address], [employer] [address] [place] [address] * (ABNORMAL) LIPID PANEL Routine (06/06/2025 2:18 PM EDT) CHOLESTEROL, TOTAL 190 <200 mg/dL [employer] HDL CHOLESTEROL 41(L) > OR = 50 mg/dL [employer] TRIGLYCERIDES 421(H) <150 mg/dL [employer] Comment: If a non-fasting specimen was collected, consider repeat triglyceride testing on a fasting specimen if clinically indicated. Joellen et al. J. of Clin. Lipidol. 2015;9:129-169. LDL-CHOLESTEROL See Note [employer] Comment: LDL cholesterol not calculated. Triglyceride levels [...] equation in the estimation of LDL-C. Ruperto MORRISON et al. SHEFALI. 2013;310(19): 0339-0447 (http://education.[employer]/faq/BMU677) CHOL/HDLC RATIO 4.6 <5.0 (calc) [employer] NON-HDL CHOLESTEROL 149(H) <130 mg/dL (calc) [employer] Comment: For patients with diabetes plus 1 major ASCVD risk factor, treating to a non-HDL-C goal of <100 mg/dL (LDL-C of <70 mg/dL) is considered a therapeutic option. Blood Blood / Unknown 06/06/2025 2 :18 PM EDT 06/06/2025 2:18 PM EDT Narrative Training Ad[employer] [facility] - 06/07/2025 4:12 AM EDT FASTING:YES Anand Keller PharmD LAB - BLOOD DRAW Final Re sult Performing Organization Address City/[facility]/ZIP Co de Phone Number [facility] [address] [address], [employer] [address] [address] * (ABNORMAL) GLUCOSE, BLOOD BY GLUCOSE MONITORING DEVICE (CLIA WAIVED)POCT Routine (06/06/2025 2:04 PM EDT) GLUCOSE 130(A) 70 - 100 mg/dL [facility] OFFICE POCT Capillary Blood Blood / Unknown 2:04 PM EDT Dominic Helms PharmD LAB - BLOOD DRAW Final Resu lt Performing Organization Address [facility] Co de Phone Number [facility] POCT * HEPATITIS PANEL W/RFLX (11/03/2024 3:38 PM EST) HEPATITIS A IGM ANTIBODY NON-REACT MART NON-REACT MART [employer] [facility] COMMENT [employer] [facility] HEPATITIS B SURFACE ANTIGEN NON-REACT MART NON-REACT MART [employer] [facility] COMMENT [employer] [facility] HEPATITIS B CORE IGM ANTIBODY NON-REACT MART NON-REACT MART [employer] [facility] COMMENT [employer] [facility] HEPATITIS C ANTIBODY NON-REACT MART NON-REACT MART [employer] [facility] Comment: HCV antibody was non-reactive. There is no laboratory evidence of HCV infection. In most cases, no further action is required. However, if recent HCV exposure is suspected, a test for HCV RNA (test code 45377) is suggested. For additional information please refer to http://education.Settle[employer]/faq/PJN31f8 (This link is being provided for informational/ educational purposes only.) Blood Blood / Unknown 11/03/2024 3 :38 PM EST 11/03/2024 3:39 PM EST Narrative [employer] - 11/07/2024 10:02 PM EST FASTING:UNKNOWN For additional information, please refer to http://GameAnalytics.S[employer]/faq/PXD803 (This link is being provided for informational/ educational purposes only.) For additional information, please refer to http://[employer].S[employer]/faq/ZOK572 (This link is being provided for informational/ educational purposes only.) For additional information, please refer to http://[employer].S[employer]/faq/ULE154 (This link is being provided for informational/ educational purposes only.) Noy TERRELL-Isak LAB - BLOOD DRAW Final Resul t Performing Organization Address [facility] Co de Phone Number [employer] [address] [address], [employer] [address] [address] * MICROALBUMIN/CREATININE RATIO, URINE, RANDOM (11/03/2024 3:38 PM EST) CREATININE, RANDOM URINE 71 20 - 275 mg/dL [employer] [facility] MICROALBUMIN 0.2 mg/dL Training Advisor D [employer] [facility] Comment: Reference Range Not established MICROALBUMIN/CREA TININE RATIO, RANDOM URINE 3 <30 mg/g creat [employer] [facility] Comment: The ADA defines abnormalities in albumin [...] PM EST 11/03/2024 3:39 PM EST Narrative [employer] - 11/07/2024 10:02 PM EST FASTING:UNKNOWN us Noy Casillas PA-C LAB URINE AMBULATORY Final R esult Performing Organization Address City/[facility]/ZIP Co de Phone Number [employer] [address] [address], [place] [employer] [facility] [address] [place] [address] * (ABNORMAL) COMPREHENSIVE METABOLIC PANEL (11/03/2024 3:38 PM EST) GLUCOSE 186(H) 65 - 99 mg/dL [employer] [facility] Comment: Fasting reference interval For someone without known diabetes, a glucose value >125 mg/dL indicates that they may have diabetes and this should be confirmed with a follow-up test. UREA NITROGEN (BUN) 16 7 - 25 mg/dL [employer] [facility] CREATININE (blood) 1.08(H) 0.50 - 0.97 mg/dL [employer] [facility] EGFR 68 > OR = 60 mL/min/1. 73m2 [employer] [facility] BUN/CREATININE RATIO 15 6 - 22 (calc) [employer] [facility] SODIUM 136 135 - 146 mmol/L [employer] [facility] POTASSIUM 4.6 3.5 - 5.3 mmol/L [employer] [facility] CHLORIDE 100 98 - 110 mmol/L [employer] [facility] CARBON DIOXIDE 29 20 - 32 mmol/L [employer] [facility] CALCIUM 9.8 8.6 - 10.2 mg/dL [employer] [facility] PROTEIN, TOTAL 7.2 6.1 - 8.1 g/dL [employer] [facility] ALBUMIN 4.2 3.6 - 5.1 g/dL [employer] [facility] GLOBULIN 3.0 1.9 - 3.7 g/dL (calc) [employer] [facility] ALBUMIN/GLOBULI N RATIO 1.4 1.0 - 2.5 (calc) [employer] [facility] BILIRUBIN, TOTAL 0.4 0.2 - 1.2 mg/dL [employer] [facility] ALKALINE PHOSPHATASE 89 31 - 125 U/L [employer] [facility] AST 19 10 - 30 U/L [employer] [facility] ALT 28 6 - 29 U/L [employer] [facility] Blood Blood / Unknown 11/03/2024 3 :38 PM EST 11/03/2024 3:39 PM EST Narrative [employer] [facility] - 11/07/2024 10:02 PM EST FASTING:UNKNOWN us Noy Casillas PA-C LAB - BLOOD DRAW Edited Resu lt - Final [employer] [facility] [address] [address], [employer] [facility] [address] [place] [address] * HIV Ag & Ab with Reflex Western Blot (03/04/2023 11:14 AM EDT) HIV AG/AB, 4TH GEN NON-REAC TIVE NON-REAC TIVE [employer] [facility] Comment: HIV-1 antigen and HIV-1/HIV-2 antibodies were [...] purpose. For additional information please refer to http://education.Settleware/faq/GYA537 (This link is being provided for informational/ educational purposes only.) The performance of this assay has not been clinically validated in patients less than 2 years old. Blood Blood / Unknown 03/04/2023 1 1:14 AM EDT 03/04/2023 11:14 AM EDT us Noy Casillas PA-C LAB - BLOOD DRAW Final Resul t [employer] [address] [address], [employer] [facility] [address] [place] [address] * PAP SMEAR (10/02/2022 3:00 AM EST) 10/02/2022 3:00 AM EST us Noy Casillas PA-C LAB - PATHOLOGY AND CYTOLOGY AMBULATORY Final Result from Last 3 Months or Most Recently Relevant to Health Maintenance Insurance [id number] Care Teams Air And Hydronic Balancing Technician Relationship Specialty Start Date End Date Noy Casillas PA-C [facility] [place] [address] PCP - General Internal Medicine 05/29/22
--- OUTSIDE RECORDS SUMMARY | 2025-08-20 12:24 | XMS_ITS | Encounter Summary ---
Author Organization [facility] Address [address] [place] [address] Care Team Providers Care Line Welder Name Role Phone Noy Malagon PA-C Primary Care Provider + [phone] Reason for Referral * Orthopedics (Urgent) - Pending Review Specialty Diagnoses / Procedures Referred By Contac t Referred To Contact Diagnoses Chronic midline low back pain without sciatica Lumbar back pain Coccyx pain Noy Malagon PA-C [address] [place] [address] Phone: tel: fax: Orthopedics, [address] [place], [place] Phone: tel: fax: Referral ID Status Reason Start Date Expiration Date Visits Requested Visits Authorized [id number] Pending Review Specialty Services Required 08/04/2025 08/04/2026 [...] Encounter Details Date Type Department Care Team ([facility] st Contact Info) Description 08/04/2025 Results Follow-Up [facility] [address] [place] [address] Noy Malagon PA-C [address] [place] [address] Social History Tobacco Use Types Packs/Day Years [...] Description 08/29/2025 4:20 PM EDT Office Visit [address] [address] Noy Malagon PA-C [address] [place] [address] 09/13/2025 10:20 AM EDT Office Visit [address] [address] Dominic Helms, PharmD [address] [place] [address] Scheduled Referrals Name Type Priority Associated Diagnoses [...] documented as of this encounter Care Teams Line Welder Relationship Specialty Start Date End Date Noy Malagon PA-C [address] [place] [address] PCP - General Internal Medicine 05/29/22 documented as of this encounter
== END 2025-08-20 11:39 | disposition home or self-care (01) ==
LOC: HO.HWS 10:55
PROVIDERS: PCP Physician Assistant; Visit Provider Obstetrics & Gynecology
DX: Z01.419 Encounter for gynecological examination (general) (routine) without abnormal findings (principal); R10.2 Pelvic and perineal pain; R31.29 Other microscopic hematuria; Z32.02 Encounter for pregnancy test, result negative
CPT/HCPCS: 99213; 99395; 99459

== ENCOUNTER 2025-08-20 10:54 | Outpatient (REF) | payer MEDICAID, SELFPAY | END 2025-08-20 10:55 | disposition home or self-care (01) | LOC: HO.LNP 10:54 | PROVIDERS: PCP Physician Assistant; Visit Provider Obstetrics & Gynecology | DX: Z01.419 Encounter for gynecological examination (general) (routine) without abnormal findings (principal); R10.2 Pelvic and perineal pain; R31.29 Other microscopic hematuria | CPT/HCPCS: 81025; 87626; 88175; 99212; 99395 ==

== ENCOUNTER 2025-09-12 09:41 | Outpatient (AMB) | payer MEDICAID, SELFPAY ==
--- NOTE | 2025-09-12 10:22 | MHC.OFFVIS ---
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 Last visit urine dip was positive microscopic hematuria. Urine culture was negative PFSH Medical History Hx LEEP (loop electrosurgical excision procedure), cervix, Anxiety Depression Asthma Surgical History History of loop electrical excision procedure (LEEP) Family History Father Diabetes HTN (hypertension) Mother HTN (hypertension) Maternal Grandmother Breast cancer Maternal Grandfather Prostate cancer Maternal Aunt Leukemia Social History Household Members: Significant Other and Children Housing: Apartment Alcohol intake: never Patient Tobacco Use Status: Never used Tobacco Current occupational status: disabled Sexual orientation: Straight/Heterosexual Gender identity: Female Female Reproductive History Menstrual Age of Menarche: 11 Review of Systems Const All systems reviewed & are unremarkable except as noted in HPI and below Reports as per HPI and Reports no additional complaints GI Reports no additional complaints Reports no additional complaints Assessment & Plan Assessment & Plan (1) Microscopic hematuria: Code(s): R31.29 - Other microscopic hematuria Category: Medical Plan: Repeat urine dip showed no evidence of microscopic hematuria. The patient was reassured. All questions answered, the patient verbalized understanding. Coding Level of Care Code Est Pt Level 3 (85767) Diagnoses Microscopic hematuria R31.29
[2025-09-12 10:25] VITALS: BMI 45.9
--- OUTSIDE RECORDS SUMMARY | 2025-09-12 11:20 | XMS_ITS | Clinical Summary ---
Author Organization [facility] Address [address] [place] [address] Phone Care Team Providers Care Football Scout Name Role Phone Physician, Pcp Unknown Primary [...] Cervical Cancer Screening: P ap Smear 2008 HPV Vaccines (1 - 3-dose SCD M series) 2014 HIV Screening 10/21/2022 Social Influencers of Health Screening 10/21/2022 Depression Screening 11/22/2024 COVID-19 Vaccine ( - 2023-2 5 season) 2025 Influenza Vaccine (#1) 2025 11/03/2024 Cholesterol Screening (Lipid Panel) 11/03/2029 11/03/2024 DTaP,Tdap,and Td Vaccines (4 - Td or Tdap) 11/03/2034 11/03/2024, 06/30/2023, 04/07/2011 RSV Immunization Adult Patients (1 - 1-dose 75+ series) 2062 Hepatitis C Screening Completed 11/03/2024 Varicella Vaccines [...] topic Insurance MEDICAID - [place] Care Teams Football Scout Relationship Specialty Start Date End Date Physician, Pcp Unknown PCP - General 02/26/25
--- OUTSIDE RECORDS SUMMARY | 2025-09-12 11:20 | XMS_ITS | Clinical Summary ---
Author Organization [facility] Address [address] [place] [address] Care Team Providers Care Manager Oracle Name Role Phone Noy Malagon PA-C Primary Care Provider Source Comments PLEASE [...] complication, without long-term current use of insulin Check sugar 3 times a day. 2 Each 11 07/11/20 24 Active pen needle, diabetic (BD ULTRA-FINE MICRO PEN NEEDLE) 32 gauge x 1/4 ndleIndications:Typ e 2 diabetes mellitus without complication, without long-term current use of insulin USE WITH INSULIN ONCE DAILY 100 Each 3 03/26/20 25 Active MISCELLANEOUS MEDICAL SUPPLY MISCIndications:Lum painter tumbling barrel pain,Coccyx pain,Urinary and fecal incontinence,Weakne ss of both lower extremities by miscellaneous route 3 (three) times daily Adult pull-ons size XL to change 3 times a day. BMI 45.13. Height: 5'.0. [facility] . 90 Each 04/13/20 Active blood-glucose meter monitoring kitIndications:High blood sugar daily Freestyle lite glucose monitor to check sugar once a day. Dx.E11.9. 1 Each 06/06/20 Active VENTOLIN HFA 90 mcg/actuation inhalerIndications: Mild intermittent asthma, unspecified whether complicated Inhale 2 Puffs into the lungs every [...] complication, without long-term current use of insulin Use to test blood sugar at least 3 times daily (Freestyle Lancets). 100 Each 06/18/20 Active omega 9-jsc-xja-fish oil 1,000 (120-180) mg capsuleIndications: hypertriglyceridemi a [...] complication, without long-term current use of insulin Use to clean finger to test blood glucose at least 3 times daily.. 100 Each 06/18/20 Active blood sugar diagnostic (BLOOD GLUCOSE TEST) stripsIndications:T ype 2 diabetes mellitus without complication, without long-term current use of insulin Use to test blood glucose at least 3 times daily. (Freestyle Precision Pollo). 100 Each 5 07/28/20 25 Active meloxicam (MOBIC) 15 mg tabletIndications:L umbar back pain,Coccyx pain,Left elbow pain Take 1 Tablet by mouth once daily. 90 Tablet 06/18/20 25 Active empagliflozin (JARDIANCE) 25 mg tabIndications:Type 2 diabetes mellitus without complication, without long-term current use of insulin Take 1 Tablet by mouth once daily. 30 Tablet 5 06/18/20 25 Active ibuprofen 800 mg tabletIndications:C hronic midline low back pain without sciatica TAKE 1 TABLET BY MOUTH THREE TIMES A DAY NEEDED FOR PAIN 90 Tablet 1 06/29/20 25 Active blood-glucose sensor (FREESTYLE EDGARD 3 PLUS SENSOR) deviIndications:Typ e 2 diabetes mellitus without complication, with long-term current use of insulin Place 1 sensor to back of upper arm every 15 days. Use to monitor blood sugar continuously (Freestyle Edgard 3 Plus). 2 Each 07/25/20 25 Active insulin glargine (LANTUS SOLOSTAR U-100 INSULIN) 100 unit/mL (3 mL) penIndications:Type 2 diabetes mellitus without complication, with long-term current use of insulin Inject 44 Units into the skin nightly at bedtime. 15 mL 1 07/25/20 25 Active Active Problems Problem Noted Date Diagnosed Date Urinary and fecal incontinence 04/25/2025 Lack of access to transportation 03/01/2025 Housing instability 06/30/2023 Type 2 diabetes mellitus wit hout complication, with long-term current use of insulin 06/02/2023 Benign paroxysmal positional vertigo 02/18/2023 High cholesterol 02/18/2023 Food insecurity 02/16/2023 Financial difficulties 02/16/2023 Posttraumatic stress disorder 06/30/2017 Overview (06/30/2017): [facility], Therapist: BETSY Wilkerson Dysthymic disorder 06/30/2017 Overview (06/30/2017): [facility], Therapist: BETSY Wilkerson Borderline personality disorder 06/30/2017 Overview (06/30/2017): [facility], Therapist: BETSY Wilkerson Carpal tunnel syndrome of right wrist 06/28/2017 Overview (06/28/2017): EMG 06/22/17 at [facility] shows mild right median neuropathy across the carpal tunnel , test is otherwise normal. GERD (gastroesophageal reflux disease) 4 Asthma 10/26/2014 Class 3 severe obesity due t o excess calories with serious comorbidity and body mass index (BMI) of 40.0 to 44.9 in adult 01/25/2014 Migraine headache 01/25/2014 Resolved Problems Problem Noted Date Diagnosed Date Resolved Date Lactating mother 01/25/2014 10/26/2014 Encounters Date Type Department Care Team Description 08/04/2025 Results Follow-Up [address] [phone] Noy Malagon PA-C 07/25/2025 4:00 PM EDT Telemedicine Visit [address] [phone] Dominic Helms, SherleyD 06/13/2025 Interim Notes [address] [phone] Jessie Mcdonald MA from Last 3 Months Immunizations Immunization Administration [...] Care Team (Late st Contact Info) Description 10/05/2025 11:20 AM EST Office Visit [facility] [id number] [place] [address] Dominic Helms, PharmD [address] [place] [address] Health Maintenance Due Date Last Done Comments Anxiety Screening 1987 Dental Examination 1987 HPV Screening (self-collect) 1987 HPV Screening 1987 Retinopathy Screening 2000 Imm-Hepatitis B (1 of 3 - 19 + 3-dose series) 2006 Imm-Pneumococcal (1 of 2 - PCV) 2006 Imm-HPV (1 - 3-dose SCDM series) 2014 Diabetes Foot Exam 06/30/2024 06/30/2023 [id number] ( season) 2025 Imm-Influenza (#1) 2025 11/03/2024 Depression [...] Conization Discontinued Cervical Cryotherapy Discontinued Colposcopy Discontinued Excision/Leep Discontinued HPV Genotyping Discontinued Vaginal Pap Discontinued Vulvoscopy Discontinued Procedures Procedure Name Priority Date/Time Associated Diagnosis Comments REFERRAL SCANNED DOCUMENT 08/20/2025 3:00 AM EDT LAB SCANNED DOCUMENT 08/20/2025 3:00 AM EDT IMAGING SCANNED DOCUMENT 08/09/2025 3:00 AM EDT IMAGING SCANNED DOCUMENT 08/09/2025 3:00 AM EDT IMAGING SCANNED DOCUMENT 07/06/2025 3:00 AM EDT IMAGING SCANNED DOCUMENT 07/06/2025 3:00 AM EDT OTHER ORDERS SCANNED DOCUMENT 07/05/2025 3:00 AM EDT MRI LUMBAR/SACRAL SPINE WITHOUT CONTRAST-[id number] Urgent 07/01/2025 3:00 AM EDT Lumbar back pain Coccyx pain Urinary and fecal incontinence Weakness of both lower extremities REFERRAL SCANNED DOCUMENT 06/21/2025 3:00 AM EDT REFERRAL SCANNED DOCUMENT 06/21/2025 3:00 AM EDT LAB SCANNED DOCUMENT 06/21/2025 3:00 AM EDT LIPID PANEL Routine 06/06/2025 2:18 PM EDT Type 2 diabetes mellitus without complication, with long-term current use of insulin ([facility]) HEMOGLOBIN GLYCOSYLATED A1C Routine 06/06/2025 2:18 PM EDT Type 2 diabetes mellitus without complication, with long-term current use of insulin ([facility]) COMPREHENSIVE METABOLIC PANEL Routine 11/03/2024 3:38 PM EST Type 2 diabetes mellitus without complication, without long-term current use of insulin ([facility]) ACUTE HEPATITIS PANEL W/RFLX Routine 11/03/2024 3:38 PM EST Immunization due MICROALBUMIN/CREATININ E RATIO, URINE, RANDOM Routine 11/03/2024 3:38 PM EST Type 2 diabetes mellitus without complication, without long-term current use of insulin ([facility]) HIV 1/2 AG & AB W/RFLX (4TH GEN) Routine 03/04/2023 11:14 AM EDT Encounter to establish care PAP SMEAR 10/02/2022 3:00 AM EST from Last 3 Months or Most Recently Relevant to Health Maintenance Results * REFERRAL SCANNED DOCUMENT (08/20/2025 3:00 AM EDT) Only the most recent of3 resultswithin the time period is included. 08/20/2025 3:00 AM EDT Noy Malagon PA-C SCAN REFERRAL Final Result * LAB SCANNED DOCUMENT (08/20/2025 3:00 AM EDT) Only the most recent of2 resultswithin the time period is included. 08/20/2025 3:00 AM EDT [employer] PA-C SCAN LAB Final Result * IMAGING SCANNED DOCUMENT (08/09/2025 3:00 AM EDT) Only the most recent of4 resultswithin the time period is included. 08/09/2025 3:00 AM EDT Noy Malagon PA-C SCAN IMAGING Final Result * OTHER ORDERS SCANNED DOCUMENT (07/05/2025 3:00 AM EDT) 07/05/2025 3:00 AM EDT Noy Malagon PA-C SCAN OTHER ORDERS Final Resu lt * MRI LUMBAR/SACRAL SPINE WITHOUT CONTRAST-[id number] (07/01/2025 3:00 AM EDT) 07/01/2025 3:00 AM EDT Noy Malagon PA-C IMG MRI Final Result * (ABNORMAL) HEMOGLOBIN GLYCOSYLATED A1C Routine (06/06/2025 2:18 PM EDT) HEMOGLOBIN A1C 9.3(H) <5.7 % [facility] Comment: For someone without known diabetes, a [...] PM EDT 06/06/2025 2:18 PM EDT Narrative [facility] - 06/07/2025 4:12 AM EDT FASTING:YES Anand Keller PharmD LAB - BLOOD DRAW Edited R esult - Final [facility] [address] [place] [phone], [place] [address] [place] [phone] * (ABNORMAL) LIPID PANEL Routine (06/06/2025 2:18 PM EDT) CHOLESTEROL, TOTAL 190 <200 mg/dL [facility] HDL CHOLESTEROL 41(L) > OR = 50 mg/dL [facility] TRIGLYCERIDES 421(H) <150 mg/dL [facility] Comment: If a non-fasting specimen was collected, consider repeat triglyceride testing on a fasting specimen if clinically indicated. Joellen et al. J. of Clin. Lipidol. 2015;9:129-169. LDL-CHOLESTEROL See Note [employer] Comment: LDL cholesterol not calculated. Triglyceride levels [...] LDL-C. Ruperto MORRISON et al. SHEFALI. 2013;310(19): 8157-8812 (http://education.[employer]faq/QSV244) CHOL/HDLC RATIO 4.6 <5.0 (calc) [facility] NON-HDL CHOLESTEROL 149(H) <130 mg/dL (calc) [facility] Comment: For patients with diabetes plus 1 major ASCVD risk factor, treating to a non-HDL-C goal of <100 mg/dL (LDL-C of <70 mg/dL) is considered a therapeutic option. Blood Blood / Unknown 06/06/2025 2 :18 PM EDT 06/06/2025 2:18 PM EDT Narrative [facility] - 06/07/2025 4:12 AM EDT FASTING:YES Anand Keller PharmD LAB - BLOOD DRAW Final Re sult [facility] [address] [place] [phone], [facility] [address] [place] [phone] * HEPATITIS PANEL W/RFLX (11/03/2024 3:38 PM EST) HEPATITIS A IGM ANTIBODY NON-REACT MART NON-REACT MART [facility] COMMENT [facility] HEPATITIS B SURFACE ANTIGEN NON-REACT MART NON-REACT MART [facility] COMMENT [address] [facility] HEPATITIS B CORE IGM ANTIBODY NON-REACT MART NON-REACT MART [address] [facility] COMMENT [address] [facility] HEPATITIS C ANTIBODY NON-REACT MART NON-REACT MART [facility] Comment: HCV antibody was non-reactive. There is no laboratory evidence of HCV infection. In most cases, no further action is required. However, if recent HCV exposure is suspected, a test for HCV RNA (test code 64496) is suggested. For additional information please refer to http://[employer]/faq/IOH86e6 (This link is being provided for informational/ educational purposes only.) Blood Blood / Unknown 11/03/2024 3 :38 PM EST 11/03/2024 3:39 PM EST Narrative [facility] [employer] - 11/07/2024 10:02 PM EST FASTING:UNKNOWN For additional information, please refer to http://[employer].Liqu[employer] [facility]/faq/LDJ272 (This link is being provided for informational/ educational purposes only.) For additional information, please refer to http://[employer]/faq/TNK804 (This link is being provided for informational/ educational purposes only.) For additional information, please refer to http://[employer] [facility]/faq/XGY299 (This link is being provided for informational/ educational purposes only.) us Noy Malagon PA-C LAB - BLOOD DRAW Final Resul t [facility] [address] [place] [phone], [facility] [address] [place] [phone] * MICROALBUMIN/CREATININE RATIO, URINE, RANDOM (11/03/2024 3:38 PM EST) CREATININE, RANDOM URINE 71 20 - 275 mg/dL [facility] MICROALBUMIN 0.2 mg/dL [facility] Comment: Reference Range Not established MICROALBUMIN/CREA TININE RATIO, RANDOM URINE 3 <30 mg/g creat [facility] Comment: The ADA defines abnormalities in albumin [...] PM EST 11/03/2024 3:39 PM EST Narrative [facility] - 11/07/2024 10:02 PM EST FASTING:UNKNOWN us Noy Malagon PA-C LAB URINE AMBULATORY Final R esult [address] [facility] [address] [address], [address] [facility] [address] [place] [address] * (ABNORMAL) COMPREHENSIVE METABOLIC PANEL (11/03/2024 3:38 PM EST) GLUCOSE 186(H) 65 - 99 mg/dL [address] [facility] Comment: Fasting reference interval For someone without known diabetes, a glucose value >125 mg/dL indicates that they may have diabetes and this should be confirmed with a follow-up test. UREA NITROGEN (BUN) 16 7 - 25 mg/dL [address] [facility] CREATININE (blood) 1.08(H) 0.50 - 0.97 mg/dL [address] [facility] EGFR 68 > OR = 60 mL/min/1. 73m2 [address] [facility] BUN/CREATININE RATIO 15 6 - 22 (calc) [address] [facility] SODIUM 136 135 - 146 mmol/L [address] [facility] POTASSIUM 4.6 3.5 - 5.3 mmol/L [address] [facility] CHLORIDE 100 98 - 110 mmol/L [address] [facility] CARBON DIOXIDE 29 20 - 32 mmol/L [address] [facility] CALCIUM 9.8 8.6 - 10.2 mg/dL [address] [facility] PROTEIN, TOTAL 7.2 6.1 - 8.1 g/dL [address] [facility] ALBUMIN 4.2 3.6 - 5.1 g/dL [address] [facility] GLOBULIN 3.0 1.9 - 3.7 g/dL (calc) [address] [facility] ALBUMIN/GLOBULI N RATIO 1.4 1.0 - 2.5 (calc) [address] [facility] BILIRUBIN, TOTAL 0.4 0.2 - 1.2 mg/dL [address] [facility] ALKALINE PHOSPHATASE 89 31 - 125 U/L [address] [employer] AST 19 10 - 30 U/L [address] [facility] ALT 28 6 - 29 U/L [address] [facility] Blood Blood / Unknown 11/03/2024 3 :38 PM EST 11/03/2024 3:39 PM EST Narrative [facility] - 11/07/2024 10:02 PM EST FASTING:UNKNOWN Noy Malagon [facility] [employer] LAB - BLOOD DRAW Edited Resu lt - Final Performing Organization Address City/[facility]/ZIP Co de Phone Number [address] [address], [address] [phone] * HIV Ag & Ab with Reflex Western Blot (03/04/2023 11:14 AM EDT) Pathologist [facility] HIV AG/AB, 4TH GEN NON-REAC TIVE NON-REAC TIVE [address] [facility] Comment: HIV-1 antigen and HIV-1/HIV-2 antibodies [...] purpose. For additional information please refer to http://education.[employer]/faq/SOA243 (This link is being provided for informational/ educational purposes only.) The performance of this assay has not been clinically validated in patients less than 2 years old. Blood Blood / Unknown 03/04/2023 1 1:14 AM EDT 03/04/2023 11:14 AM EDT Noynick Malagon PA-C LAB - BLOOD DRAW Final Resul t Performing Organization Address [facility]/ZIP Co de Phone Number [address] [facility] [address] [address], [facility] [address] [phone] * PAP SMEAR (10/02/2022 3:00 AM EST) 10/02/2022 3:00 AM EST Noy Malagon PA-C LAB - PATHOLOGY AND CYTOLOGY AMBULATORY Final Result from Last 3 Months or Most Recently Relevant to Health Maintenance Insurance [address] [employer] Care Teams Manager Oracle Relationship Specialty Start Date End Date Noy Malagon PA-C [address] [place] [phone] PCP - General Internal Medicine 05/29/22
== END 2025-09-12 10:46 | disposition home or self-care (01) ==
LOC: HO.HWS 09:41
PROVIDERS: PCP Physician Assistant; Visit Provider Obstetrics & Gynecology
DX: R31.29 Other microscopic hematuria (principal)
CPT/HCPCS: 99213

== ENCOUNTER → 2025-09-12 09:41 | Outpatient (BNVA) | payer MEDICAID, SELFPAY | PROVIDERS: PCP Physician Assistant; Visit Provider Obstetrics & Gynecology | DX: R31.29 Other microscopic hematuria (principal) | CPT/HCPCS: 81002; 99212 ==